=== PATIENT | female | born 1970 | race Caucasian/White ===

== ENCOUNTER 2017-03-06 15:07 | Emergency (ER) | payer BC ==
[2017-03-06] MEDS ORDERED: Ondansetron 4 MG/2 ML SDV IVPUSH ONE (15:18)
[2017-03-06] MEDS ORDERED: Sodium Chloride 0.9% 1,000 ML IV ONE (15:18)
[2017-03-06] MEDS ORDERED: Ketorolac 30 MG/ML SDV IVPUSH ONE (15:18)
[2017-03-06] MEDS ORDERED: Morphine 10 MG/ML Syringe IV ONE (15:18)
--- NOTE | 2017-03-06 15:42 | CR ---
EXAMINATION: Right wrist HISTORY: Trauma COMPARISON: 05/27/2009 TECHNIQUE: 3 views FINDINGS/IMPRESSION: There is a comminuted mildly displaced and angulated distal radius fracture chika ntified with intra-articular extension. There is an adjacent minimally displaced ulnar styloid fract ure. The remaining osseous structures and joint spaces appear preserved.
--- NOTE | 2017-03-06 15:43 | CR ---
EXAMINATION: Right elbow HISTORY: Trauma COMPARISON: None TECHNIQUE: 3 views FINDINGS/IMPRESSION: There is no acute osseous abnormality, dislocation, or fracture identified. Bon e mineralization and joint spaces appear normal. No soft tissue swelling or joint effusion.
--- NOTE | 2017-03-06 15:46 | EDM.PDOC ---
<Nolan Harper - Last Filed: 03/06/17 15:47> ED HPI Trauma - General Chief Complaint: Upper Extremity Injury/Pain Stated Complaint: UNK Time Seen by Provider: 03/06/17 15:15 Source: Reports: Patient History Limitations: Reports: No limitations - History of Present Illness INITIAL COMMENTS - FREE TEXT/NARRATIVE: History of present illness: [6-year-old female stepped backwards with a trip and fall landing on her right arm now presenting with subsequent pain and deformity in the right wrist and elbow region indicating she feels it is broken] Review of systems: As per history of present illness and below otherwise all systems reviewed and negative. Past medical history: As per history of present illness and as reviewed below otherwise noncontributory. Surgical history: As per history of present illness and as reviewed below otherwise noncontributory. Social history: No reported history of drug or alcohol abuse. Family history: As per history of present illness and as reviewed below otherwise noncontributory. Physical exam: HEENT: Atraumatic, normocephalic, pupils reactive, negative for conjunctival pallor or scleral icterus, mucous membranes moist, throat clear, neck supple, nontender, trachea midline. Lungs: Clear to auscultation, breath sounds equal bilaterally, chest nontender. Heart: S1S2, regular, negative for clicks, rubs, or JVD. Abdomen: Soft, nondistended, nontender. Negative for masses or hepatosplenomegaly. Negative for costovertebral tenderness. Pelvis: Stable nontender. Genitourinary: Deferred. Rectal: Deferred. Extremities: Right wrist and elbow with some swelling and deformity, good capillary refill with otherwise good CMST, negative for cords or calf pain. Neurovascular unremarkable. Neuro: Awake, alert, oriented. Cranial nerves II through XII unremarkable. Cerebellum unremarkable. Motor and sensory unremarkable throughout. Exam nonfocal. Diagnostics: [X-ray of right wrist and elbow] Therapeutics: [IV fluids, Toradol, morphine] Impression: [Fracture of right wrist and contusion of right elbow] Plan: [Followup with Dr. london scheduled for 0800 tomorrow] Definitive disposition and diagnosis as appropriate pending reevaluation and review of above. Allergies/ADRs: Allergies No Known Allergies Allergy (Verified 04/13/15 14:55) Home Medications: Ambulatory Orders DULoxetine [Cymbalta] 60 mg PO DAILY 04/13/15 [Confirmed 04/13/15] buPROPion [Wellbutrin XL] 300 mg PO DAILY 04/13/15 [Confirmed 03/06/17] Omeprazole Magnesium [Prilosec] 03/06/17 Past Medical History Other Respiratory History: hx pleurisy Social & Family History - Tobacco Use Smoking Status *Q: Never Smoker Second Hand Smoke Exposure: No - Caffeine Use Caffeine Use: Reports: Tea - Alcohol Use Days Per Week of Alcohol Use: 0 - Recreational Drug Use Recreational Drug Use: No Review of Systems - Review of Systems Review Of Systems: See Below (See history of present illness) Trauma Exam - Physical Exam Exam: See Below (See history of present illness) Course - Vital Signs Last Recorded V/S: Last Vital Signs Temp 36.8 C 03/06/17 15:15 Pulse 87 03/06/17 15:15 Resp 18 03/06/17 15:15 BP 114/57 L 03/06/17 15:15 Pulse Ox 97 03/06/17 15:15 - Orders/Labs/Meds Orders: Active Orders 24 hr Category Date Time Status DME for Discharge [COMM] Stat Oth 03/06/17 15:49 Ordered Meds: Medications Discontinued Medications Generic Name Dose Route Start Last Admin Trade Name Jeremyq PRN Reason Stop Dose Admin Sodium Chloride 1,000 mls @ 999 mls/hr 03/06/17 15:18 03/06/17 15:48 Normal Saline IV 03/06/17 16:18 999 mls/hr STAT ONE Administration Ketorolac Tromethamine 30 mg 03/06/17 15:18 03/06/17 15:43 Toradol IVPUSH 03/06/17 15:19 30 mg ONETIME ONE Administration Morphine Sulfate 2 mg 03/06/17 15:18 03/06/17 15:46 Morphine IV 03/06/17 15:19 2 mg ONETIME ONE Administration Ondansetron HCl 8 mg 03/06/17 15:18 03/06/17 15:44 Zofran IVPUSH 03/06/17 15:19 8 mg ONETIME ONE Administration Departure - Departure Time of Disposition: 15:47 Disposition: Home, Self-Care 01 Condition: good Clinical Impression: Fracture of radius and ulna Instructions: Wrist Fracture Treated With Immobilization, [id number] Referrals: PCP,None [Primary Care Provider] - Forms: ED Department Discharge Additional Instructions: The following information is given to patients seen in the emergency department who are being discharged to home. This information is to outline your options for follow-up care. We provide all patients seen in our emergency department with a follow-up referral. The need for follow-up, as well as the timing and circumstances, are variable depending upon the specifics of your emergency department visit. If you don't have a primary care physician on staff, we will provide you with a referral. We always advise you to contact your personal physician following an emergency department visit to inform them of the circumstance of the visit and for follow-up with them and/or the need for any referrals to a consulting specialist. The emergency department will also refer you to a specialist when appropriate. This referral assures that you have the opportunity for follow-up care with a specialist. All of these measure are taken in an effort to provide you with optimal care, which includes your follow-up. Under all circumstances we always encourage you to contact your private physician who remains a resource for coordinating your care. When calling for follow-up care, please make the office aware that this follow-up is from your recent emergency room visit. If for any reason you are refused follow-up, please contact the [facility] Emergency Department at and asked to speak to the emergency department charge nurse. You have a fracture of your wrist as discussed and we are placing an Orthocast per orthopedics request we have scheduled you an outpatient CT of the right wrist so that it will be completed for your visit at 0800 tomorrow morning. Please followup with that appointment. Return to ED as needed as discussed - My Orders Last 24 Hours: My Active Orders 03/06/17 15:49 DME for Discharge [COMM] Stat - Assessment/Plan Last 24 Hours: My Active Orders 03/06/17 15:49 DME for Discharge [COMM] Stat <Cierra Banks - Last Filed: 03/06/17 17:08> ED HPI Trauma - History of Present Illness INITIAL COMMENTS - FREE TEXT/NARRATIVE: Please note that orthopedics requested a CT scan of the wrist to be performed which we arranged to be done after discharge from the ER so they would have the results for her clinic appointment tomorrow. The patient was agreeable with doing this and it has been arranged. Short arm post mold was placed on the right wrist with a sling
[2017-03-06 19:24] VITALS: BP 110/57
== END 2017-03-06 17:00 | disposition home or self-care (01) ==
LOC: MW.ED 15:07
DX: S52.501A Unspecified fracture of the lower end of right radius, initial encounter for closed fracture (principal); S52.611A Displaced fracture of right ulna styloid process, initial encounter for closed fracture; Z79.899 Other long term (current) drug therapy; W01.0XXA Fall on same level from slipping, tripping and stumbling without subsequent striking against object, initial encounter; S62.101A Fracture of unspecified carpal bone, right wrist, initial encounter for closed fracture; S52.571A Other intraarticular fracture of lower end of right radius, initial encounter for closed fracture
CPT/HCPCS: 73080; 73110; 73200; 96374; 96375; 99283; A4566; J1885; J2270; J2405; J7040; 99284

== ENCOUNTER → 2017-03-06 | Outpatient (CLI) | payer BC ==
--- NOTE | 2017-03-07 09:53 | CT ---
EXAM DATE: 03/06/17 PATIENT'S AGE: 46 Patient: HYUN DUTTON Facility: [place], [place] Site . Site : 1970 Study: CT Extremity Right Wrist [id number]/19/2017 4:57:37 PM Ordering Physician: Karen Nina Final Report: HISTORY: Wrist fracture. Technique: CT right wrist without contrast. Comparison: None. Findings: Comminuted fracture of the distal radius involving the distal radial articular surface. Mild apex volar angulation and dorsal impaction with dorsal tilt of the radial articular surface. Radiocarpal alignment is maintained. There is comminution of the distal radial articular surface with up to 3 mm separation between fracture fragments at the articular surface. The dorsal fragments are mildly impacted. Less than 2 mm articular surface step-off between adjacent fragments at the distal radial articular surface. Mildly displaced comminuted ulnar styloid fracture. No other fracture. Scapholunate interval is upper limits of normal. No lunotriquetral interval is maintained. Remainder of the joint spaces are preserved. No lytic or blastic bone lesions. Wrist joint effusion. Soft tissue swelling. Impression : 1. Comminuted, mildly angulated and impacted intra-articular fracture of the distal radius. 2. Mildly displaced comminuted ulnar styloid fracture. Dictated by Charli Holland MD @ Mar 06 2017 5:16PM (Electronic Signature) Report Signed by Proxy and Original Signed Document filed in the Medical Record. [facility] MED[facility] CENTERFaviola
== END ==
LOC: MW.CT 16:11
PROVIDERS: ATTEND Orthopaedic Surgery
DX: S62.101A Fracture of unspecified carpal bone, right wrist, initial encounter for closed fracture (principal); S52.571A Other intraarticular fracture of lower end of right radius, initial encounter for closed fracture; S52.611A Displaced fracture of right ulna styloid process, initial encounter for closed fracture
CPT/HCPCS: 73200-26-RT; 73200-RT

== ENCOUNTER → 2017-03-07 | Outpatient (CLI) | payer BC ==
--- NOTE | 2017-03-07 12:22 | CR ---
EXAMINATION: Right wrist HISTORY: Fracture COMPARISON: 12/06/2016 TECHNIQUE: 3 views FINDINGS/IMPRESSION: There is grossly stable comminuted distal radius fracture identified. There is adjacent mildly displaced ulnar styloid fracture noted. Overall position and alignment appear grossl y unchanged.
== END ==
LOC: MW.CHORTHO 08:57
PROVIDERS: ATTEND Orthopaedic Surgery
DX: S62.101A Fracture of unspecified carpal bone, right wrist, initial encounter for closed fracture (principal); S52.501A Unspecified fracture of the lower end of right radius, initial encounter for closed fracture; S52.611A Displaced fracture of right ulna styloid process, initial encounter for closed fracture
CPT/HCPCS: 73110-26-RT; 73110-RT

== ENCOUNTER 2017-03-08 04:57 | Emergency (ER) | payer BC ==
[2017-03-08] MEDS ORDERED: HYDROmorphone 1 MG/ML Syringe IM ONE (05:30)
--- NOTE | 2017-03-08 05:34 | EDM.PDOC ---
ED HPI Trauma - General Chief Complaint: Upper Extremity Injury/Pain Stated Complaint: RIGHT ARM PAIN Time Seen by Provider: 03/08/17 05:30 Source: Reports: Patient - History of Present Illness INITIAL COMMENTS - FREE TEXT/NARRATIVE: Chief complaint pain Patient presents with history of a distal radial fracture as well as ulnar styloid fracture, she is seeing Maria Isabel Bailon hand or wrist has been reduced x- rays on file Patient has been taking OxyContin unknown milligram dose 2 tabs every 4 hours without relief, she presents tearful No fever nausea vomiting chills sweats no chest pain shortness breath headache dizziness or palpitation HEENT NCAT PERRLA EOMI nares patent oropharynx clear neck supple no meningeal sign Chest clear throughout CV regular rate and rhythm Abdomen benign Extremities four-inch motion strength 5 out of 5 no edema Left upper extremity splint noted capillary refill within normal limits less than 5 seconds 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 Bailon scheduled sooner as needed Allergies/ADRs: Allergies No Known Allergies Allergy (Verified 03/08/17 05:11) Home Medications: Ambulatory Orders DULoxetine [Cymbalta] 60 mg PO DAILY 04/13/15 [Confirmed 04/13/15] buPROPion [Wellbutrin XL] 300 mg PO DAILY 04/13/15 [Confirmed 03/08/17] Omeprazole Magnesium [Prilosec] 03/06/17 Hydrocodone/Acetaminophen [Hydrocodon-Acetaminophen 5-325] 03/08/17 Past Medical History Other Respiratory History: hx pleurisy Gastrointestinal History: Reports: GERD Endocrine/Metabolic History: Reports: None - Infectious Disease History Infectious Disease History: Reports: Chicken pox Social & Family History - Family History Family Medical History: Noncontributory - Tobacco Use Smoking Status *Q: Never Smoker Second Hand Smoke Exposure: No - Caffeine Use Caffeine Use: Reports: Tea - Alcohol Use Days Per Week of Alcohol Use: 0 - Recreational Drug Use Recreational Drug Use: No Review of Systems - Review of Systems Review Of Systems: ROS reveals no pertinent complaints other than HPI. Trauma Exam - Physical Exam Exam: See Below Course - Vital Signs Last Recorded V/S: Last Vital Signs Temp 36.7 C 03/08/17 05:13 Pulse 83 03/08/17 05:13 Resp 18 03/08/17 05:13 BP 137/66 03/08/17 05:13 Pulse Ox 97 03/08/17 05:13 - Orders/Labs/Meds Orders: Active Orders 24 hr Category Date Time Status HYDROmorphone [Dilaudid] Med 03/08/17 05:30 Once 0.5 mg IM ONETIME ONE Medication Orders Hydromorphone HCl (Dilaudid) 0.5 mg IM ONETIME ONE Stop: 03/08/17 05:31 Meds: Medications Generic Name Dose Route Start Last Admin Trade Name Freq PRN Reason Stop Dose Admin Hydromorphone HCl 0.5 mg 03/08/17 05:30 Dilaudid IM 03/08/17 05:31 ONETIME ONE Departure - Departure Time of Disposition: 05:33 Disposition: Home, Self-Care 01 Condition: good Clinical Impression: Distal radial fracture Forms: ED Department Discharge Additional Instructions: Continue Medication as prescribed Return if symptoms persist or worsen Followup with Dr. Jones or primary care as needed - My Orders Last 24 Hours: My Active Orders 03/08/17 05:30 HYDROmorphone [Dilaudid] 0.5 mg IM ONETIME ONE - Assessment/Plan Last 24 Hours: My Active Orders 03/08/17 05:30 HYDROmorphone [Dilaudid] 0.5 mg IM ONETIME ONE
[2017-03-08 06:57] VITALS: BP 125/67
== END 2017-03-08 06:15 | disposition home or self-care (01) ==
LOC: MW.ED 04:57
DX: S52.501D Unspecified fracture of the lower end of right radius, subsequent encounter for closed fracture with routine healing (principal); S52.611D Displaced fracture of right ulna styloid process, subsequent encounter for closed fracture with routine healing; K21.9 Gastro-esophageal reflux disease without esophagitis
CPT/HCPCS: 96372; 99283; J1170

== ENCOUNTER → 2017-03-14 | Outpatient (CLI) | payer BC ==
--- NOTE | 2017-03-14 16:01 | CR ---
EXAM DATE: 03/14/17 PATIENT'S AGE: 46 Patient: HYUN DUTTON Facility: [place], [place] Site . Site : 1970 Study: XRay Extremity Right [id number]/27/2017 8:56:32 AM Ordering Physician: Jayden Astudillo Final Report: Indication: Follow up fracture. Technique: AP and lateral views of the right wrist. Comparison: 03/07/2017. Findings: Plaster cast in place. Comminuted distal radial metaphysis fracture fragments unchanged and near anatomic in alignment. Widened scapholunate articulation due to scaphoid lunate ligament disruption. Impression: 1. Comminuted distal radial metaphysis fracture without change in alignment. 2. Scapholunate ligament disruption. Dictated by Pierre Ramirez MD @ Mar 14 2017 3:23PM (Electronic Signature) Report Signed by Proxy. BRIGHT
== END ==
LOC: MW.CHORTHO 07:40
PROVIDERS: ATTEND Physician Assistant
DX: S62.101A Fracture of unspecified carpal bone, right wrist, initial encounter for closed fracture (principal); S52.501A Unspecified fracture of the lower end of right radius, initial encounter for closed fracture; S63.591A Other specified sprain of right wrist, initial encounter
CPT/HCPCS: 73100-26-RT; 73100-RT

== ENCOUNTER → 2017-03-20 | Outpatient (CLI) | payer BC ==
--- NOTE | 2017-03-20 12:31 | CR ---
EXAMINATION: Right wrist HISTORY: Fracture COMPARISON: 03/14/2017 TECHNIQUE: 2 views FINDINGS/IMPRESSION: There is a comminuted intra-articular distal radius fracture identified, unchan ged in position and alignment. There is an adjacent mildly displaced ulnar styloid fracture. The rem aining osseous structures appear intact.
== END ==
LOC: MW.CHORTHO 07:46
PROVIDERS: ATTEND Physician Assistant
DX: S62.101A Fracture of unspecified carpal bone, right wrist, initial encounter for closed fracture (principal); S52.571A Other intraarticular fracture of lower end of right radius, initial encounter for closed fracture; S52.611A Displaced fracture of right ulna styloid process, initial encounter for closed fracture
CPT/HCPCS: 73100-26-RT; 73100-RT

== ENCOUNTER 2020-12-01 08:40 | Day surgery (SDC) | payer BC ==
[~2020-12-01 08:40] MED LIST: Lactated Ringers 1,000 ML IV SCH; Lidocaine 2% 5 ML SDV ONE; Propofol 200 MG/20 ML SDV ONE; fentaNYL 100 MCG/2 ML SDV ONE
--- NOTE | 2020-12-01 09:16 | PCM.PREANE ---
Preanesthetic Assessment - Anesthesia/Transfusion/Family Hx Anesthesia History: Prior Anesthesia Without Reaction Family History of Anesthesia Reaction: No Transfusion History: No Prior Transfusion(s) Intubation History: Unknown - Review of Systems General: No Symptoms Pulmonary: No Symptoms Cardiovascular: No Symptoms Gastrointestinal: Abdominal Pain, Other (significant acid reflux) Neurological: No Symptoms Other: Reports: None - Physical Assessment Height: 5 ft 9 in Weight: 119.295 kg ASA Class: 2 Mental Status: Alert & Oriented x3 Airway Class: Mallampati = 2 Dentition: Reports: Normal Dentition Thyro-Mental Finger Breadths: 3 Mouth Opening Finger Breadths: 3 ROM/Head Extension: Full Lungs: Clear to Auscultation, Normal Respiratory Effort Cardiovascular: Regular Rate, Regular Rhythm - Allergies Allergies/Adverse Reactions: Allergies Allergy/AdvReac Type Severity Reaction Status Date / Time No Known Allergies Allergy Verified 11/25/20 07:56 - Blood Blood Available: No - Anesthesia Plan Pre-Op Medication Ordered: None - Acknowledgements Anesthesia Type Planned: MAC Pt an Appropriate Candidate for the Planned Anesthesia: Yes Alternatives and Risks of Anesthesia Discussed w Pt/Guardian: Yes Pt/Guardian Understands and Agrees with Anesthesia Plan: Yes PreAnesthesia Questionnaire HEENT History: Reports: Other (See Below) Other HEENT History: wears glasses Cardiovascular History: Reports: Other (See Below) (lymphedema bilat. 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: Musculoskeletal History: Reports: Fracture, Fibromyalgia Neurological History: Reports: Other (See Below) Other Neuro History: hx head injury Psychiatric History: Reports: ADHD, Anxiety, Depression Endocrine/Metabolic History: Reports: None, Obesity/BMI 30+ (BMI 38.8) Hematologic History: Reports: None Immunologic History: Reports: None Oncologic (Cancer) History: Reports: None Dermatologic History: Reports: None - Infectious Disease History Infectious Disease History: Reports: Chicken Pox - Past Surgical History Head Surgeries/Procedures: Reports: None HEENT Surgical History: Reports: None Cardiovascular Surgical History: Reports: None Respiratory Surgical History: Reports: None GI Surgical History: Reports: Cholecystectomy Female Surgical History: Reports: Hysterectomy Endocrine Surgical History: Reports: None Neurological Surgical History: Reports: None Musculoskeletal Surgical History: Reports: ORIF Other Musculoskeletal Surgeries/Procedures:: ORIF fx right wrist Oncologic Surgical History: Reports: None Dermatological Surgical History: Reports: None - SUBSTANCE USE Tobacco Use Status *Q: Never Tobacco User - HOME MEDS Home Medications: Home Meds Methylphenidate HCl 10 mg PO ASDIRECTED 11/25/20 [History] Omeprazole 20 mg PO DAILY 11/25/20 [History] Pantoprazole Sodium [Protonix] 40 mg PO BEDTIME 11/25/20 [History] Vortioxetine Hydrobromide [Trintellix] 20 mg PO DAILY 11/25/20 [History] - CURRENT (IN HOUSE) MEDS Current Meds: Current Medications Lactated Ringer's (Ringers, Lactated) 1,000 mls @ 125 mls/hr IV ASDIRECTED VALENTIN Discontinued Medications Fentanyl (Sublimaze) Confirm Administered Dose 100 mcg .ROUTE .STK-MED ONE Stop: 12/01/20 07:11 Lidocaine (Xylocaine-Mpf 2%) Confirm Administered Dose 5 ml .ROUTE .STK-MED ONE Stop: 12/01/20 07:11 Propofol (Diprivan 20 Ml) Confirm Administered Dose 400 mg .ROUTE .STK-MED ONE Stop: 12/01/20 07:11
[2020-12-01] MEDS ORDERED: Midazolam 1 MG/ML 2 ML SDV ONE (10:04)
[2020-12-01] MEDS ORDERED: Glycopyrrolate 0.2 MG/ML SDV ONE (10:05)
--- NOTE | 2020-12-01 10:31 | PCM.OPNOTE ---
- General Post-Op/Procedure Note Date of Surgery/Procedure: 12/01/20 Operative Procedure(s): EGD with biopsies Findings: Normal EGD dictation [id number] Pre Op Diagnosis: GERD, Esophageal spasms. Post-Op Diagnosis: GERD, Esophageal spasms. Primary Surgeon: Ranjan Ayala Pathology: EGD biopsies Complications: None Condition: Good
[2020-12-01 10:43] VITALS: PULSE 85
--- NOTE | 2020-12-01 10:47 | PCM.POSTAN ---
POST ANESTHESIA ASSESSMENT - MENTAL STATUS Mental Status: Alert, Oriented - VITAL SIGNS Vital Signs: Last Vital Signs Temp 36.0 C L 12/01/20 09:00 Pulse 85 12/01/20 10:41 Resp 19 12/01/20 10:41 BP 129/61 12/01/20 10:41 Pulse Ox 96 12/01/20 10:41 - RESPIRATORY Respiratory Status: Respiratory Rate WNL, Airway Patent, O2 Saturation Stable - CARDIOVASCULAR CV Status: Pulse Rate WNL, Blood Pressure Stable - GASTROINTESTINAL GI Status: No Symptoms - PAIN Pain Score: 0 - POST OP HYDRATION Hydration Status: Adequate & Stable - OBSERVATIONS Free Text/Narrative:: No anesthesia problems
--- NOTE | 2020-12-01 11:13 | PCM48HPAN ---
Post Anesthesia Note - EVALUATION WITHIN 48HRS OF ANESTHETIC Vital Signs in Normal Range: Yes Patient Participated in Evaluation: Yes Respiratory Function Stable: Yes Airway Patent: Yes Cardiovascular Function Stable: Yes Hydration Status Stable: Yes Pain Control Satisfactory: Yes Nausea and Vomiting Control Satisfactory: Yes Mental Status Recovered: Yes Vital Signs: Last Vital Signs Temp 36.0 C L 12/01/20 09:00 Pulse 85 12/01/20 10:41 Resp 19 12/01/20 10:41 BP 129/61 12/01/20 10:41 Pulse Ox 96 12/01/20 10:41 - COMMENTS/OBSERVATIONS Free Text/Narrative:: No anesthesia problems
[2020-12-01 11:39] VITALS: BP 118/66
--- NOTE | 2020-12-01 15:21 | OR ---
SURGEON: KARINE MATHEW MD DATE OF PROCEDURE: 12/01/2020 PREOPERATIVE DIAGNOSES: 1. Gastroesophageal reflux disease. 2. Esophageal spasm. POSTOPERATIVE DIAGNOSES: 1. Gastroesophageal reflux disease. 2. Esophageal spasm. PROCEDURE PERFORMED: Esophagogastroduodenoscopy with biopsy. PRIMARY SURGEON: Karine Mathew MD ANESTHESIA: With the anesthesiologist. EXTENT OF EGD: To at least second part of duodenum. FINDINGS: Normal-appearing EGD. LIMITATIONS: None. REASON FOR EGD: The patient is a pleasant 50-year-old female who says for the last several months she has had a cough and sore throat along with bronchitis and pneumonia. She is coughing all the time. She feels she has a lot of postnasal drip. She often loses her voice. She feels the reflux has become worse and feels like she gets mucus on the back of her throat. She has had an issue with GERD for the last 4-5 years. Does have family history of esophageal cancer and esophageal rupture. She did have an upper swallow to go over with this patient in the preop area and showed a small sliding hernia and esophageal dysmotility with possible distal spasm and some minimal reflux. I did go over with the patient that if she is having spasming and dysmotility, she will probably need a manometry and see a GI doctor. She is on a PPI. She might want to try peppermint oil to help with spasming. All the patient's questions were answered. PROCEDURE IN DETAIL: Physical exam was performed by me. Risks, benefits, and associated procedure were explained to the patient in detail. Patient verbalized understanding of the same. Patient was next connected to appropriate monitoring devices and IV was started. EKG, pulse, pulse oximetry, blood pressure, and capnography were monitored throughout the procedure. Continuous oxygen and sedation were provided by the anesthesiologist. Bite block was placed and sedation was begun. After adequate sedation was achieved, upper endoscope was advanced under visualization without any difficulty in the upper GI tract and the mucosa of the esophagus, GE junction, stomach, pylorus, and 1st and 2nd part of duodenum were evaluated. Duodenum appeared normal. Scope was brought back into the stomach. Both retro and antegrade views of the stomach were done. This also appeared normal mucosa. I did do a biopsy of the pylorus to check for H pylori. The scope was brought to the GE junction. GE junction was approximately 36 cm from the incisors with a good squamocolumnar junction. The scope was brought to the stomach. Stomach was deflated. Scope was brought to the esophagus. Esophagus also appeared normal. The scope was completely removed. The procedure was terminated. ENDOSCOPIC DIAGNOSIS: Normal esophagogastroduodenoscopy. RECOMMENDATIONS: Patient to follow up in clinic to go over the pathology. She may need a referral to GI for a manometry and a possible further workup of her esophageal dysmotility and esophageal spasming. SHWETHA / KARINA /[id number]
== END 2020-12-01 11:10 | disposition home or self-care (01) ==
LOC: MW.SDS 08:40
PROVIDERS: ATTEND Surgery
DX: K21.9 Gastro-esophageal reflux disease without esophagitis (principal); K22.4 Dyskinesia of esophagus; E66.9 Obesity, unspecified; G47.30 Sleep apnea, unspecified; Z80.0 Family history of malignant neoplasm of digestive organs; Z79.899 Other long term (current) drug therapy; Z98.890 Other specified postprocedural states; Z68.38 Body mass index [BMI] 38.0-38.9, adult
CPT/HCPCS: 43239; J2001; J2250; J2704; J3010; J3490; J7120; 00731; 88305; 88312

== ENCOUNTER 2021-06-29 07:14 | Emergency (ER) | payer BC ==
[2021-06-29] MEDS ORDERED: Sodium Chloride 0.9% 2.5 ML Syringe FLUSH PRN (07:30)
[2021-06-29] MEDS ORDERED: Ondansetron 4 MG/2 ML SDV IVPUSH ONE (07:30)
[2021-06-29] MEDS ORDERED: Sodium Chloride 0.9% 10 ML Syringe FLUSH PRN (07:30)
[2021-06-29] MEDS ORDERED: Acetaminophen 500 MG Tab PO ONE (07:30)
[2021-06-29] MEDS ORDERED: Ketorolac 30 MG/ML SDV IVPUSH ONE (07:30)
[2021-06-29] MEDS ORDERED: Sodium Chloride 0.9% 1,000 ML IV ONE ×2 (07:30→10:40)
[2021-06-29] MEDS ORDERED: Azithromycin 250 MG Tab PO ONE (07:32)
[2021-06-29 08:18] LABS: CARBON DIOXIDE,CO2 25.1 mmol/L (21.0-32.0); POTASSIUM,K 3.4 mmol/L (3.5-5.1)
[2021-06-29] MEDS ORDERED: cefTRIAXone 1 GM in Premix Bag 1 BAG IV ONE (09:17)
--- NOTE | 2021-06-29 09:46 | EDM.PDOC ---
ED HPI GENERAL MEDICAL PROBLEM - General Chief Complaint: General Stated Complaint: COVID LIKE SYMPTOMS, VOMITING, TIGHT CHEST Time Seen by Provider: 06/29/21 08:09 - History of Present Illness INITIAL COMMENTS - FREE TEXT/NARRATIVE: HISTORY AND PHYSICAL: History of present illness: This is a 50-year-old female with a history significant for a hysterectomy, cholecystectomy, negative for hypertension diabetes lung and kidney problems, history of liver problems secondary to mononucleosis several years ago, who presents ER today secondary to generalized malaise, tactile fevers, yellow/green productive cough, rhinorrhea, sore throat, ear pain, diffuse myalgias, joint pains, muscle pains for several days. Patient reports that she saw her primary care physician and was given a full course of steroids secondary to concerns regarding fluid behind her ear. Patient reports that she did not improve at all with the steroids and saw her doctor yesterday. She reports that her doctor started her on doxycycline and she is taking 2 doses of doxycycline with a last dose at approximately 5 AM. Patient reports that she had a Covid and flu test yesterday that was negative. Patient reports episode of vomiting at approximately 6 AM today that woke her up but that was after the doxycycline dose. Patient denies any other nausea or vomiting. Patient does have loose stools. Patient denies any abdominal pain or chest pain. Patient denies any shortness of breath. Patient denies any dysuria, frequency, urgency. Patient has any melena or bright red blood per rectum. Patient has any weakness to her upper or lower extremities. Patient denies any neck pain or headache. Review of systems: As per history of present illness and below otherwise all systems reviewed and negative. Past medical history: As per history of present illness and as reviewed below otherwise noncontributory. Surgical history: As per history of present illness and as reviewed below otherwise noncontributory. Social history: No reported history of drug abuse. Family history: As per history of present illness and as reviewed below otherwise noncontributory. Physical exam: This patient was seen and evaluated during the 2019 SARS-CoV-2 novel coronavirus pandemic period. Community viral transmission is ongoing at time of this encounter and the emergency department is operating under pandemic response procedures. Constitutional: Patient is oriented to person, place, and time. Appears well- developed and well-nourished. No distress. HEENT: Moist mucous membranes. Neck supple, no nuchal rigidity, no photophobia, no Kernig's sign or Brudzinski sign, patient does not present with signs or symptoms of be consistent with meningitis. Tympanic membrane's pearly jacques without fluid or evidence of infection. Oropharynx clear without any erythema. No lymphadenopathy identified. Head: Normocephalic and atraumatic Eyes: Right eye exhibits no discharge. Left eye exhibits no discharge. No scleral icterus Neck: Normal range of motion. No tracheal deviation present. Cardiovascular: Normal rate and regular rhythm. Pulmonary: Effort normal, no respiratory distress. Abdominal: No distention Musculoskeletal: Normal range of motion. No joint effusion or tenderness or erythema. Neuro: A&Ox3. Cranial nerves II-XII grossly intact, 5/5 strength to bilateral upper and lower extremities, sensation intact to bilateral upper and lower extremities, no nystagmus, PERRLA, EOMI, normal speech, proprioception intact to bilateral lower extremities, normal finger to nose test, gait normal Skin: Dewy Rose, warm and dry. Psychiatric: Normal mood and affect. Behavior is normal. Judgment and thought content normal. Nursing note and vital signs have been reviewed Diagnostics: CBC/CMP within normal limits Therapeutics: NSS x1 L, Zithromax 500 mg p.o. given secondary to concerned that doxycycline is causing her to have emesis. Zofran 4 mg IV Assessment and plan: 50-year-old who presents to the ER today secondary to URI symptoms. Patient's chest x-ray reveals a likely right middle lobe infiltrate versus a fat pad. Patient was given an additional dose of Rocephin 1 g IV. Patient has been given 1 L of NSS reports that she feels significant improved after the fluids. Patient is also given Toradol for her muscle aches. At this time, patient symptoms appear to be most consistent with an infectious process with likely pneumonia on the x-ray. It does not appear to be consistent with pulmonary embolism secondary to patient's presenting symptoms and patient has no significant risk factors for PE. Patient be discharged home with prescription for Zithromax. 4:56 PM: Chest x-ray was read by radiology as concerning for a nodule in the left upper lobe and recommended a CT scan with IV contrast. CT scan with IV contrast was obtained which revealed no evidence of PE, no evidence of lobar pneumonia but with increased interstitial markings throughout consistent with viral pneumonia to consider Covid (patient had negative influenza and negative Covid test done at her doctor's office yesterday), a 4 cm nodule was noted in the left upper lobe. A copy of the CT scan report and recommendations per radiology were given to the patient and her instructed to give to her PCP for continued outpatient follow-up but this time with a 4 cm nodule that is calcified it is less likely to be malignant given the size and that there was a nodule identified on a prior x-ray several years ago. Patient feels much improved after the IV fluids and Toradol and Zofran. Patient will be discharged home with a prescription for Zithromax and instructed to continue her doxycycline. Patient be given a prescription for Zofran for nausea and ibuprofen. Reassessment at the time of disposition demonstrates that the patient is in no acute distress. The patient has remained stable throughout the entire ED visit and is without objective evidence for acute process requiring urgent intervention or hospitalization. The patient is stable for discharge, counseling is provided as documented above, discussed symptomatic treatment and specific conditions for return. I have spoken with the patient/caregiver and discussed todays findings, in addition to providing specific details for the plan of care. Questions are answered and there is agreement with the plan. Definitive disposition and diagnosis as appropriate pending reevaluation and review of above. - Related Data Allergies Allergy/AdvReac Type Severity Reaction Status Date / Time No Known Allergies Allergy Verified 12/01/20 10:05 Home Meds: Home Meds Methylphenidate HCl 10 mg PO ASDIRECTED 11/25/20 [History] Omeprazole 20 mg PO DAILY 11/25/20 [History] Pantoprazole Sodium [Protonix] 40 mg PO BEDTIME 11/25/20 [History] Vortioxetine Hydrobromide [Trintellix] 20 mg PO DAILY 11/25/20 [History] Ibuprofen 600 mg PO Q6HR PRN #30 tablet 06/29/21 [Rx] Ondansetron [Zofran ODT] 4 mg PO Q6H PRN #12 tab.dis 06/29/21 [Rx] Past Medical History HEENT History: Reports: Other (See Below) Other HEENT History: wears glasses Cardiovascular History: Reports: None Respiratory History: Reports: Sleep Apnea Other Respiratory History: uses CPAP, states had bronchitis and pneumonia in early Oct 2020 Gastrointestinal History: Reports: GERD Genitourinary History: Reports: None 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: Musculoskeletal History: Reports: Fracture, Fibromyalgia Neurological History: Reports: Other (See Below) Other Neuro History: hx head injury Psychiatric History: Reports: ADHD, Anxiety, Depression Endocrine/Metabolic History: Reports: None, Obesity/BMI 30+ Hematologic History: Reports: None Immunologic History: Reports: None Oncologic (Cancer) History: Reports: None Dermatologic History: Reports: None - Infectious Disease History Infectious Disease History: Reports: Chicken Pox - Past Surgical History Head Surgeries/Procedures: Reports: None HEENT Surgical History: Reports: None Cardiovascular Surgical History: Reports: None Respiratory Surgical History: Reports: None GI Surgical History: Reports: Cholecystectomy Female Surgical History: Reports: Hysterectomy Endocrine Surgical History: Reports: None Neurological Surgical History: Reports: None Musculoskeletal Surgical History: Reports: ORIF Other Musculoskeletal Surgeries/Procedures:: ORIF fx right wrist Oncologic Surgical History: Reports: None Dermatological Surgical History: Reports: None Social & Family History - Family History Family Medical History: No Pertinent Family History - Caffeine Use Caffeine Use: Reports: None - Recreational Drug Use Recreational Drug Use: No ED ROS GENERAL - Review of Systems Review Of Systems: See Below ED EXAM, GENERAL - Physical Exam Exam: See Below #1 Interpretation EKG Interpretation Comments: EKG date June 29, 2021 at 7:55 AM. EKG: As interpreted by ER physician: Esteban: Nonspecific ST-T wave abnormalities Normal axis No evidence of ST elevation KS Normal sinus rhythm heart rate of 84 Course - Vital Signs Last Recorded V/S: Last Vital Signs Temp 97.8 F 06/29/21 07:37 Pulse 76 06/29/21 12:36 Resp 18 06/29/21 12:36 BP 114/51 L 06/29/21 12:36 Pulse Ox 93 L 06/29/21 12:36 - Orders/Labs/Meds Orders: Active Orders 24 hr Category Date Time Status EKG Documentation Completion [RC] AM Care 06/29/21 07:30 Active Sodium Chloride 0.9% [Saline Flush] Med 06/29/21 07:30 Active 10 ml FLUSH ASDIRECTED PRN Sodium Chloride 0.9% [Saline Flush] Med 06/29/21 07:30 Active 2.5 ml FLUSH ASDIRECTED PRN Saline Lock Insert [OM.PC] Stat Oth 06/29/21 07:31 Ordered Medication Orders Sodium Chloride (Sodium Chloride 0.9% 10 Ml Syringe) 10 ml FLUSH ASDIRECTED PRN PRN Reason: Keep Vein Open Last Admin: 06/29/21 08:00 Dose: 10 ml Documented by: NOHEMY Sodium Chloride (Sodium Chloride 0.9% 2.5 Ml Syringe) 2.5 ml FLUSH ASDIRECTED PRN PRN Reason: Keep Vein Open Last Admin: 06/29/21 08:00 Dose: 2.5 ml Documented by: NOHEMY Labs: Laboratory Tests 06/29/21 06/29/21 Range/Units 07:43 07:43 WBC 3.51 L (4.0-11.0) K/uL RBC 5.38 (4.30-5.90) M/uL Hgb 14.9 (12.0-16.0) g/dL Hct 43.7 (36.0-46.0) % MCV 81.2 (80.0-98.0) fL MCH 27.7 (27.0-32.0) pg MCHC 34.1 (31.0-37.0) g/dL RDW Std Deviation 42.2 (28.0-62.0) fl RDW Coeff of Pooja 14 (11.0-15.0) % Plt Count 90 L (150-400) K/uL MPV 11.30 (7.40-12.00) fL Neut % (Auto) 67.2 (48.0-80.0) % Lymph % (Auto) 26.8 (16.0-40.0) % [place] % (Auto) 6.0 (0.0-15.0) % Eos % (Auto) 0.0 (0.0-7.0) % Baso % (Auto) 0.0 (0.0-1.5) % Neut # (Auto) 2.4 (1.4-5.7) K/uL Lymph # (Auto) 0.9 (0.6-2.4) K/uL [place] # (Auto) 0.2 (0.0-0.8) K/uL Eos # (Auto) 0.0 (0.0-0.7) K/uL Baso # (Auto) 0.0 (0.0-0.1) K/uL Nucleated RBC % 0.0 /100WBC Nucleated RBCs # 0 K/uL Sodium 138 (136-145) mmol/L Potassium 3.4 L (3.5-5.1) mmol/L Chloride 101 (98-107) mmol/L Carbon Dioxide 25.1 (21.0-32.0) mmol/L BUN 15 (7.0-18.0) mg/dL Creatinine 1.3 H (0.6-1.0) mg/dL Est Cr Clr Drug Dosing 54.11 mL/min Estimated GFR (MDRD) 43.4 ml/min Glucose 98 (74-106) mg/dL Calcium 8.4 L (8.5-10.1) mg/dL Total Bilirubin 0.3 (0.2-1.0) mg/dL AST 29 (15-37) IU/L ALT 29 (14-63) IU/L Alkaline Phosphatase 83 (46-116) U/L Total Protein 7.2 (6.4-8.2) g/dL Albumin 3.5 (3.4-5.0) g/dL Globulin 3.7 (2.6-4.0) g/dL Albumin/Globulin Ratio 0.9 (0.9-1.6) Meds: Medications Generic Name Dose Route Start Last Admin Trade Name Freq PRN Reason Stop Dose Admin Sodium Chloride 10 ml 06/29/21 07:30 06/29/21 08:00 Sodium Chloride 0.9% 10 Ml Syringe FLUSH 10 ml ASDIRECTED PRN Administration Keep Vein Open Sodium Chloride 2.5 ml 06/29/21 07:30 06/29/21 08:00 Sodium Chloride 0.9% 2.5 Ml Syringe FLUSH 2.5 ml ASDIRECTED PRN Administration Keep Vein Open Discontinued Medications Generic Name Dose Route Start Last Admin Trade Name Freq PRN Reason Stop Dose Admin Acetaminophen 500 mg 06/29/21 07:30 06/29/21 08:03 Acetaminophen 500 Mg Tab PO 06/29/21 07:31 500 mg ONETIME ONE Administration Azithromycin 500 mg 06/29/21 07:32 06/29/21 08:01 Azithromycin 250 Mg Tab PO 06/29/21 07:33 500 mg Q24H ONE Administration Sodium Chloride 1,000 mls @ 999 mls/hr 06/29/21 07:30 06/29/21 07:59 Normal Saline IV 06/29/21 08:30 999 mls/hr .Bolus ONE Administration Ceftriaxone Sodium/Dextrose 1 50 mls @ 100 mls/hr 06/29/21 09:17 06/29/21 09:24 gm/ Premix IV 06/29/21 09:46 100 mls/hr ONETIME ONE Administration Sodium Chloride 1,000 mls @ 999 mls/hr 06/29/21 10:40 06/29/21 11:01 Normal Saline IV 06/29/21 11:40 999 mls/hr .Bolus ONE Administration Iopamidol 75 ml 06/29/21 11:16 06/29/21 11:16 Iopamidol 755 Mg/Ml 500 Ml Multipack Bottle IVPUSH 06/29/21 11:17 75 ml ONETIME STA Administration Ketorolac Tromethamine 30 mg 06/29/21 07:30 06/29/21 08:01 Ketorolac 30 Mg/Ml Sdv IVPUSH 06/29/21 07:31 30 mg ONETIME ONE Administration Ondansetron HCl 4 mg 06/29/21 07:30 06/29/21 08:02 Ondansetron 4 Mg/2 Ml Sdv IVPUSH 06/29/21 07:31 4 mg ONETIME ONE Administration Departure - Departure Time of Disposition: 12:58 Disposition: Home, Self-Care 01 Condition: Good Clinical Impression: Viral respiratory infection, Pulmonary nodule - Discharge Information Instructions: Pulmonary Nodule, Viral Illness, Adult Referrals: Shelbi Zapata ANATOMY TEACHER [Primary Care Provider] - Forms: ED Department Discharge Additional Instructions: Your seen and evaluated in the ER today secondary to signs and symptoms concerning for possible pneumonia. Your x-ray reveals that you might have a viral infection in your lungs. You were started on doxycycline and I will add Zithromax to your antibiotic regimen. A prescription will be sent to your pharmacy. We will also write a prescription for ibuprofen to help with your muscle aches as well as Zofran help you with your nausea. Please make an appointment see your doctor in 48 hours if no improvement is seen. Please return to the ER if he develop any new or concerning symptoms such as fevers or increased shortness of breath. The following information is given to patients seen in the emergency department who are being discharged to home. This information is to outline your options for follow-up care. We provide all patients seen in our emergency department with a follow-up referral. The need for follow-up, as well as the timing and circumstances, are variable depending upon the specifics of your emergency department visit. If you don't have a primary care physician on staff, we will provide you with a referral. We always advise you to contact your personal physician following an emergency department visit to inform them of the circumstance of the visit and for follow-up with them and/or the need for any referrals to a consulting spec ialist. The emergency department will also refer you to a specialist when appropriate. This referral assures that you have the opportunity for follow-up care with a specialist. All of these measure are taken in an effort to provide you with optimal care, which includes your follow-up. Under all circumstances we always encourage you to contact your private physician who remains a resource for coordinating your care. When calling for follow-up care, please make the office aware that this follow-up is from your recent emergency room visit. If for any reason you are refused follow-up, please contact the [facility] Emergency Department at and asked to speak to the emergency department charge nurse. [facility] [address] [place] [address] [address] Sepsis Event Note (ED) - Focused Exam Vital Signs: Vital Signs Temp Pulse Resp BP Pulse Ox 06/29/21 12:36 76 18 114/51 L 93 L 06/29/21 11:13 75 19 125/67 96 06/29/21 10:36 79 19 114/64 97 06/29/21 10:06 76 18 123/63 95 06/29/21 09:10 78 18 138/62 92 L 06/29/21 09:09 80 18 128/68 95 06/29/21 07:37 97.8 F 86 19 135/59 L 97 06/29/21 07:25 97.1 F 85 19 128/63 95 - My Orders Last 24 Hours: My Active Orders 06/29/21 07:30 EKG Documentation Completion [RC] AM Sodium Chloride 0.9% [Saline Flush] 10 ml FLUSH ASDIRECTED PRN Sodium Chloride 0.9% [Saline Flush] 2.5 ml FLUSH ASDIRECTED PRN 06/29/21 07:31 Saline Lock Insert [OM.PC] Stat - Assessment/Plan Last 24 Hours: My Active Orders 06/29/21 07:30 EKG Documentation Completion [RC] AM Sodium Chloride 0.9% [Saline Flush] 10 ml FLUSH ASDIRECTED PRN Sodium Chloride 0.9% [Saline Flush] 2.5 ml FLUSH ASDIRECTED PRN 06/29/21 07:31 Saline Lock Insert [OM.PC] Stat
--- NOTE | 2021-06-29 10:39 | CR ---
INDICATION: Cough. TECHNIQUE: Chest 2 views COMPARISON: Prior report available from a chest x-ray dated February 04, 2015. FINDINGS: Cardiovascular and mediastinum: Heart size and vasculature are normal in caliber and appearance. Lungs and pleural spaces: Ill-defined 2 cm nodule or infiltrate is in the left upper lobe. Remainder of the lungs and pleural spaces are clear. Bones and soft tissues: No significant findings. IMPRESSION: Indeterminate sub solid nodule or infiltrate measuring approximately 2 cm in the left upper lobe. A lesion in this location was also described on the prior study. Continued evaluation including CT is recommended to assess for malignancy if not already performed. Remainder of the exam is unremarkable. Dictated by Lake Freeman MD @ 06/29/2021 10:38:[address] Lake Freeman @ Jun 29 2021 10:38AM
[2021-06-29] MEDS ORDERED: Iopamidol 755 MG/ML 500 ML Multipack Bottle IVPUSH STA (11:16)
--- NOTE | 2021-06-29 12:12 | CT ---
INDICATION: Shortness of breath, abnormal chest x-ray. COMPARISON: Chest radiograph 06/29/2021 and 02/04/2015. TECHNIQUE: CT of the chest with 75 cc of Isovue 370 IV contrast. Coronal and sagittal reconstructions. FINDINGS: Normal heart size. Normal caliber thoracic aorta and central pulmonary arteries. Mild coronary artery calcifications. Negative for acute pulmonary embolism. No pericardial effusion. Few small mediastinal and bilateral hilar lymph nodes. No lymphadenopathy by size criteria. There are multifocal patchy ground-glass opacities throughout the lungs bilaterally which are likely infectious or inflammatory. No pleural effusion or pneumothorax. 4 mm noncalcified pulmonary nodule along the left major fissure (series 202, image 54). No central endobronchial lesion. The thyroid gland is normal in appearance. Small hiatal hernia. Cholecystectomy. Small splenule. The visualized upper abdomen is otherwise unremarkable. The bones are unremarkable. IMPRESSION: 1. Negative for acute pulmonary embolism. 2. Multifocal patchy ground-glass opacities throughout the lungs bilaterally are likely infectious or inflammatory. Rule out COVID pneumonia. 3. 4 mm noncalcified pulmonary nodule along the left major fissure. Please see follow-up guidelines below. [employer] GUIDELINES - SOLID NODULES: : SINGLE LOW RISK - nodule less than 6 mm: No routine follow-up. - nodule 6-8 mm: CT at 6-12 months, then consider CT at 18-24 months. - nodule greater than 8 mm: Consider CT at 3 months, PET/CT or tissue sampling. SINGLE HIGH RISK - nodule less than 6 mm: Optional CT at 12 months. - nodule 6-8 mm: CT at 6-12 months, then CT at 18-24 months. - nodule greater than 8 mm: Consider CT at 3 months, PET/CT or tissue sampling. Please note that all CT scans at this facility use dose modulation, iterative reconstruction, and/or weight-based dosing when appropriate to reduce radiation dose to as low as reasonably achievable. Dictated by Virginia Livingston MD @ 06/29/2021 12:10:[address] Virginia Livingston @ Jun 29 2021 12:10PM
[2021-06-29 13:17] VITALS: BP 123/82; PULSE 84
== END 2021-06-29 13:19 | disposition home or self-care (01) ==
LOC: MW.ED 07:14
DX: J98.8 Other specified respiratory disorders (principal); R91.1 Solitary pulmonary nodule; K21.9 Gastro-esophageal reflux disease without esophagitis; B34.9 Viral infection, unspecified; E66.9 Obesity, unspecified; Z68.35 Body mass index [BMI] 35.0-35.9, adult; Z90.49 Acquired absence of other specified parts of digestive tract; Z87.19 Personal history of other diseases of the digestive system; Z79.899 Other long term (current) drug therapy
CPT/HCPCS: 36415; 71046; 71260; 80053; 85025; 93005; 96365; 96375; 99284; A9270; J0696; J1885; J2405; J7030; Q9967; 93010

== ENCOUNTER 2021-07-10 09:51 | Inpatient (IN) | payer BC ==
--- NOTE | 2021-07-10 09:59 | EDM.PDOC ---
ED HPI GENERAL MEDICAL PROBLEM - General Chief Complaint: Upper Extremity Injury/Pain Stated Complaint: LEFT ARM PAIN, COVID POS Time Seen by Provider: 07/10/21 09:52 Source of Information: Reports: Patient History Limitations: Reports: No Limitations - History of Present Illness INITIAL COMMENTS - FREE TEXT/NARRATIVE: HISTORY AND PHYSICAL: History of present illness: Patient is a 50-year-old female who presents to the emergency room with complaints left arm pain x 1 week and shortness of breath, chest pain, nausea, vomiting, diarrhea and generalized fatigue x 2 weeks. Patient was seen at the walk-in clinic on 06/28/2021 and was tested for influenza and COVID-19. She was told the initial test was negative but 2 days later was informed the state test was positive for COVID-19. The walk-in clinic prescribed her doxycycline and steroid. She was seen in the emergency room on 06/29/2021 with her URI symptoms and had lab work along with chest x-ray and CTA of the chest. She was diagnosed with pneumonia. She was given a Z-Enmanuel to add to her doxycycline regiment. She completed her antibiotic regiment but continues to feel unwell. She was seen in the [facility] on 07/04/2021 for symptoms and left arm pain (from axilla to antecubital space). [facility] stated she may have a blood clot because her D-dimer was elevated, although they couldn't find "where it is in my body". She was not given any additional scans or ultrasounds of the extremity. States she continues to feel unwell and would like to be evaluated for a DVT. She states she feels no better than when she initially started having symptoms approximately 2 weeks ago. No recent extended sitting for travel. No hormone therapy. No previous history of PE/DVT. No known bleeding or clotting disorders. Patient denies any fever, chills, headache, change in vision, syncope or near syncope. Denies any back pain, abdominal pain, constipation or dysuria. Has not noted any blood in urine or stool. Patient has not been eating and drinking appropriately. Review of systems: As per history of present illness and below otherwise all systems reviewed and negative. Past medical history: As per history of present illness and as reviewed below otherwise noncontributory. Surgical history: As per history of present illness and as reviewed below otherwise noncontributory. Social history: See social history for further information Family history: As per history of present illness and as reviewed below otherwise noncontributory. Physical exam: General: Well developed and well nourished 50-year-old female. Alert and orientated x 3. Nontoxic in appearance and in mild distress due to anxiety/pain. Vital signs are stable and have been reviewed by me. Nursing notes were reviewed. Accompanied by who is attentive to 's needs. HEENT: Atraumatic, normocephalic, pupils equal and reactive bilaterally, negative for conjunctival pallor or scleral icterus, mucous membranes moist, throat clear, neck supple, nontender, trachea midline. No drooling or trismus noted. No meningeal signs. No hot potato voice noted. Lungs: Slightly diminished to auscultation bilaterally. No wheezes, rales, or rhonchi. Chest nontender. Normal work of breathing, no accessory muscles used. Heart: S1S2, regular rate and rhythm without overt murmur, gallops, or rubs. No JVD. No peripheral edema Abdomen: Soft, nondistended, nontender. Normoactive bowel sounds. Negative for masses or costovertebral tenderness. Skin: Cool, clammy, and intact. No lesions or rashes noted. Hematologic: No petechiae or purpra. Mucosa appropriate color and normal nail bed color and refill. Extremities: Atraumatic, moves all extremities per self without difficulty or deficits. Strong radial pulses bilaterally. Cap refill is at 3 seconds bilaterally to upper extremities. Mild perfusion noted, although appears dehydrated. Negative for cords or calf pain. Neurovascular unremarkable. Neuro: Awake, alert, oriented. Cranial nerves II through XII unremarkable. Cerebellum unremarkable. Motor and sensory unremarkable throughout. Exam nonfocal. Psychiatric: Mood and affect are appropriate. Normal thought process. Answering questions appropriately. Notes: *This patient was seen and evaluated during the 2019 SARS-CoV-2 novel coronavirus pandemic period. Community viral transmission is ongoing at time of this encounter and the emergency department is operating under pandemic response procedures. Patient is a 50-year-old female who presents to the emergency room with complaints of left arm pain x1 week. She states she is concerned that she has a blood clot from and IV she had in her left antecubital space over a week ago. She has pain from the antecubital site to her axilla. States nothing makes the pain better or worse. She has good strength to bilateral upper extremities with good cap refill. She was told at [facility]'s emergency room that her D-dimer was elevated (could be falsely elevated due to her being COVID-19 positive) but they were unable to find the source of where she would have a blood clot. She has no other risk factors such as recent travel, hormone therapy or history of PE/DVT. She has a secondary complaint of nausea, vomiting, diarrhea that has been persistent over the last 2 weeks. She had been on doxycycline and Z-Enmanuel for pneumonia, has completed these but does not feel any improvement with her shortness of breath or cough. She did have a PE study done here on 06/29/2021 which was negative for PE. Multifocal patchy groundglass opacities throughout the lungs bilaterally, likely infectious or inflammatory in nature. EKG is similar from 06/29/21: Sinus rhythm with rate of 86. Chest x-ray shows hyperinflation with extensive interstitial thickening and superimposed pulmonary fibrotic changes with likely mild pulmonary edema. Patient's potassium is 3.2, BUN 15, creatinine 1.4. Her troponin is negative. The ultrasound of the left upper extremity shows positive for acute DVT within the left subclavian, axillary, brachial, cephalic, and antecubital veins. Due to patient continuing to have nausea and vomiting I am concerned if she were to be sent home with Eliquis or Coumadin that she would not keep the medication down and not have therapeutic benefit. I have talked with the patient about today's findings, in addition to providing specific details for plan of care. Spoke with Dr Ayala, hospitalist on-call, who is agreeable to keeping this patient for further care and management. Requested Lovenox 1mg/kg given here. Since patient still has respiratory symptoms associated with her COVID-19 diagnosis from 06/28/2021 we will treat her as COVID positive still and put her in an isolation room. CESAR Pereira here to see patient for admission. Patient is vitally stable at this time. Will continue to monitor until shes transferred to the floor. Diagnostics: CBC, CMP, Troponin, EKG, CXR, PT/PTT, upper extremity US Therapeutics: IV fluids, Zofran, Ativan, Lovenox Impression: DVT, left upper extremity Dehydration Hypokalemia Recent COVID-19 infection Definitive disposition and diagnosis as appropriate pending reevaluation and review of above. Duration: Week(s): left arm Pain Score (Numeric/FACES): 8 - Related Data Allergies Allergy/AdvReac Type Severity Reaction Status Date / Time No Known Allergies Allergy Verified 07/10/21 10:14 Home Meds: Home Meds Methylphenidate HCl 10 mg PO ASDIRECTED 11/25/20 [History] Omeprazole 20 mg PO DAILY 11/25/20 [History] Pantoprazole Sodium [Protonix] 40 mg PO BEDTIME 11/25/20 [History] Vortioxetine Hydrobromide [Trintellix] 20 mg PO DAILY 11/25/20 [History] Ibuprofen 600 mg PO Q6HR PRN #30 tablet 06/29/21 [Rx] Ondansetron [Zofran ODT] 4 mg PO Q6H PRN #12 tab.dis 06/29/21 [Rx] Past Medical History HEENT History: Reports: Other (See Below) Other HEENT History: wears glasses Cardiovascular History: Reports: None Respiratory History: Reports: Sleep Apnea Other Respiratory History: uses CPAP, states had bronchitis and pneumonia in early Oct 2020 Gastrointestinal History: Reports: GERD Genitourinary History: Reports: None [employer] History: Reports: Musculoskeletal History: Reports: Fracture, Fibromyalgia Neurological History: Reports: Other (See Below) Other Neuro History: hx head injury Psychiatric History: Reports: ADHD, Anxiety, Depression Endocrine/Metabolic History: Reports: None, Obesity/BMI 30+ Hematologic History: Reports: None Immunologic History: Reports: None Oncologic (Cancer) History: Reports: None Dermatologic History: Reports: None - Infectious Disease History Infectious Disease History: Reports: Chicken Pox - Past Surgical History Head Surgeries/Procedures: Reports: None HEENT Surgical History: Reports: None Cardiovascular Surgical History: Reports: None Respiratory Surgical History: Reports: None GI Surgical History: Reports: Cholecystectomy Female Surgical History: Reports: Hysterectomy Endocrine Surgical History: Reports: None Neurological Surgical History: Reports: None Musculoskeletal Surgical History: Reports: ORIF Other Musculoskeletal Surgeries/Procedures:: ORIF fx right wrist Oncologic Surgical History: Reports: None Dermatological Surgical History: Reports: None Social & Family History - Family History Family Medical History: No Pertinent Family History - Caffeine Use Caffeine Use: Reports: None Review of Systems - Review of Systems Review Of Systems: Comprehensive ROS is negative, except as noted in HPI. ED EXAM, GENERAL - Physical Exam Exam: See Below (See dictation) Course - Vital Signs Last Recorded V/S: Last Vital Signs Temp 97.0 F 07/10/21 10:14 Pulse 91 07/10/21 11:33 Resp 17 07/10/21 11:33 BP 150/92 H 07/10/21 11:33 Pulse Ox 97 07/10/21 11:33 - Orders/Labs/Meds Orders: Active Orders 24 hr Category Date Time Status VL Duplex Upr Ext Veins Ltd Lt [US] Stat Exams 07/10/21 10:10 Taken UA RFX KELLY AND CULT IF INDIC [URIN] Stat Lab 07/10/21 10:10 Ordered Labs: Laboratory Tests 07/10/21 07/10/21 07/10/21 Range/Units 10:19 10:19 11:16 WBC 9.59 (4.0-11.0) K/uL RBC 4.90 (4.30-5.90) M/uL Hgb 13.6 (12.0-16.0) g/dL Hct 39.8 (36.0-46.0) % MCV 81.2 (80.0-98.0) fL MCH 27.8 (27.0-32.0) pg MCHC 34.2 (31.0-37.0) g/dL RDW Std Deviation 42.0 (28.0-62.0) fl RDW Coeff of Pooja 14 (11.0-15.0) % Plt Count 172 (150-400) K/uL MPV 10.60 (7.40-12.00) fL Neut % (Auto) 75.9 (48.0-80.0) % Lymph % (Auto) 14.6 L (16.0-40.0) % Person % (Auto) 8.8 (0.0-15.0) % Eos % (Auto) 0.6 (0.0-7.0) % Baso % (Auto) 0.1 (0.0-1.5) % Neut # (Auto) 7.3 H (1.4-5.7) K/uL Lymph # (Auto) 1.4 (0.6-2.4) K/uL Person # (Auto) 0.8 (0.0-0.8) K/uL Eos # (Auto) 0.1 (0.0-0.7) K/uL Baso # (Auto) 0.0 (0.0-0.1) K/uL Nucleated RBC % 0.0 /100WBC Nucleated RBCs # 0 K/uL Sodium 140 (136-145) mmol/L Potassium 3.2 L (3.5-5.1) mmol/L Chloride 104 (98-107) mmol/L Carbon Dioxide 26.6 (21.0-32.0) mmol/L BUN 15 (7.0-18.0) mg/dL Creatinine 1.4 H (0.6-1.0) mg/dL Est Cr Clr Drug Dosing 50.24 mL/min Estimated GFR (MDRD) 39.8 ml/min Glucose 121 H (74-106) mg/dL Lactic Acid 1.7 (0.4-2.0) mmol/L Calcium 8.5 (8.5-10.1) mg/dL Total Bilirubin 0.9 (0.2-1.0) mg/dL AST 21 (15-37) IU/L ALT 26 (14-63) IU/L Alkaline Phosphatase 135 H (46-116) U/L Troponin I < 0.050 (0.000-0.056) ng/mL Total Protein 7.0 (6.4-8.2) g/dL Albumin 2.8 L (3.4-5.0) g/dL Globulin 4.2 H (2.6-4.0) g/dL Albumin/Globulin Ratio 0.7 L (0.9-1.6) Meds: Medications Discontinued Medications Generic Name Dose Route Start Last Admin Trade Name Freq PRN Reason Stop Dose Admin Enoxaparin Sodium 115 mg 07/10/21 11:25 07/10/21 11:33 Enoxaparin 100 Mg/1 Ml Syringe SUBCUT 07/10/21 11:26 Not Given ONETIME ONE Enoxaparin Sodium 100 mg 07/10/21 11:30 Enoxaparin 100 Mg/1 Ml Syringe SUBCUT 07/10/21 11:31 ONETIME ONE Sodium Chloride 1,000 mls @ 999 mls/hr 07/10/21 10:13 07/10/21 10:18 Normal Saline IV 07/10/21 11:13 999 mls/hr STAT ONE Administration Lorazepam 0.5 mg 07/10/21 10:13 07/10/21 10:18 Lorazepam 2 Mg/Ml Sdv IVPUSH 07/10/21 10:14 0.5 mg ONETIME ONE Administration Ondansetron HCl 4 mg 07/10/21 10:13 07/10/21 10:18 Ondansetron 4 Mg/2 Ml Sdv IVPUSH 07/10/21 10:14 4 mg ONETIME ONE Administration Departure - Departure Time of Disposition: 12:11 Disposition: Refer to Observation Clinical Impression: COVID-19, Dehydration, Hypokalemia DVT of upper extremity (deep vein thrombosis) Qualifiers: Affected thrombotic vein of extremity: axillary Chronicity: acute Laterality: left Qualified Code(s): I82.A12 - Acute embolism and thrombosis of left axillary vein - Discharge Information Sepsis Event Note (ED) - Focused Exam Vital Signs: Vital Signs Temp Pulse Resp BP Pulse Ox 07/10/21 11:09 83 18 140/80 97 07/10/21 10:39 83 18 141/75 H 98 07/10/21 10:14 97.0 F 93 18 134/73 97 - My Orders Last 24 Hours: My Active Orders 07/10/21 10:10 VL Duplex Upr Ext Veins Ltd Lt [US] Stat UA RFX KELLY AND CULT IF INDIC [URIN] Stat - Assessment/Plan Last 24 Hours: My Active Orders 07/10/21 10:10 VL Duplex Upr Ext Veins Ltd Lt [US] Stat UA RFX KELLY AND CULT IF INDIC [URIN] Stat
[2021-07-10] MEDS ORDERED: LORazepam 2 MG/ML SDV IVPUSH ONE (10:13)
[2021-07-10] MEDS ORDERED: Ondansetron 4 MG/2 ML SDV IVPUSH ONE ×2 (10:13→12:44)
[2021-07-10] MEDS ORDERED: Sodium Chloride 0.9% 1,000 ML IV ONE (10:13)
--- NOTE | 2021-07-10 10:25 | PCM.EKG ---
#1 Interpretation Time: 10:24 EKG Interpretation Comments: 86, normal sinus rhythm mild ST depression relatively unchanged as compared to prior EKG
--- NOTE | 2021-07-10 10:51 | CR ---
Indication: Shortness of breath Comparison: None available. Technique: Single AP view chest Findings: There is hyperinflation and chronic interstitial change. There are extensive interstitial opacities seen throughout the bilateral hemithoraces likely representing moderate pulmonary fibrotic changes with superimposed pulmonary vascular congestion. The cardiac silhouette is stable. The bony thorax is grossly intact. Impression: Hyperinflation with extensive interstitial thickening and superimposed pulmonary fibrotic changes with likely mild pulmonary edema. Dictated by Godwin Richards MD @ 07/10/2021 10:49:[address] Godwin Richards @ Jul 10 2021 10:49AM
[2021-07-10 10:53] LABS: BLOOD UREA NITROGEN,BUN 15 mg/dL (7.0-18.0); CARBON DIOXIDE,CO2 26.6 mmol/L (21.0-32.0); CHLORIDE,CL 104 mmol/L (98-107); GLUCOSE RANDOM 121 mg/dL (74-106); POTASSIUM,K 3.2 mmol/L (3.5-5.1); SODIUM,NA 140 mmol/L (136-145)
[2021-07-10] MEDS ORDERED: Enoxaparin 100 MG/1 ML Syringe SUBCUT ONE ×2 (11:25→11:30)
--- NOTE | 2021-07-10 12:07 | US ---
INDICATION: Pain in left arm. COMPARISON: None. TECHNIQUE: A compression venous ultrasound exam was performed of the left upper extremity using jacques-scale imaging, color Doppler, and spectral Doppler analysis. FINDINGS: There is thrombus within the left subclavian, axillary, brachial, cephalic, and antecubital veins with incompressibility and lack of Doppler flow. The internal jugular and innominate veins were not imaged. The radial and ulnar veins are patent and negative for thrombus. IMPRESSION: 1. Positive for acute DVT within the left subclavian, axillary, brachial, cephalic, and antecubital veins. 2. Findings discussed with Brett Mack at 12:05pm on 07/10/2021. Dictated by Virginia Livingston MD @ 07/10/2021 12:04:15 PM (Electronically Signed)
[2021-07-10] MEDS ORDERED: Morphine 4 MG/ML Syringe IVPUSH ONE (12:44)
[2021-07-10] MEDS ORDERED: Sodium Chloride 0.9% 2.5 ML Syringe FLUSH PRN (13:05)
[2021-07-10] MEDS ORDERED: Albuterol/Ipratropium 4 GM Inhalation Spray INH PRN (13:05)
--- NOTE | 2021-07-10 13:05 | PCM.HP.2 ---
H&P History of Present Illness - General Date of Service: 07/10/21 Admit Problem/Dx: Admission Diagnosis/Problem Admission Diagnosis/Problem DVT, Deep venous thrombosis of upper extremity Source of Information: Patient History Limitations: Reports: No Limitations - History of Present Illness Initial Comments - Free Text/Narative: This 50-year-old female with past medical history of presented to the ER with complaints of left arm pain along with shortness of breath, chest pain, nausea, vomiting, diarrhea and generalized fatigue x2 weeks. She was initially diagnosed with COVID-19 on 06/28 she was treated with doxycycline and steroid. She came in to the ER on 06/29 and had a CTA of the chest along with chest x-ray she was diagnosed with pneumonia and azithromycin was added to doxycycline regimen. He has since completed her antibiotic regimen but continues to feel un well. On 07/04/2021 she was evaluated in [place] ER with the similar symptoms along with increasing left arm pain. Her D-dimer was found to be elevated but they did not find location of possible DVT/PE. She had no additional scans of her body at this time. She continues to feel unwell continues to feel short of breath with generalized fatigue and malaise. She reports nearly continuous hacking cough that is nonproductive. Denies any chest pain. Denies any abdominal pain but does report nausea and inability to eat or keep food down. She reports pain to left upper extremity with intermittent numbness and tingling and coolness. She denies any history of previous DVT/PE she is not on any h ormone therapy and has had no recent travel. She denies any known bleeding or clotting disorders. She denies any tobacco use no recreational drug use and rare occasional alcohol use. In the ER no leukocytosis noted hemoglobin 13.6 platelet count 172,000. Potassium 3.2 BUN 25 creatinine 1.4 glucose 121 troponin negative. Chest x-ray reveals hyperinflation extensive interstitial thickening and superimposed pulmonary fibrotic changes with likely mild pulmonary edema. EKG 86 normal sinus rhythm otherwise unchanged compared to prior EKG. In the ER she was treated with Lovenox 115 mg subcu x1. She was also given 1 L normal saline along with Zofran and Ativan. Left upper extremity ultrasound reveals acute DVT within the left subclavian axillary brachial cephalic and antecubital veins. T he radial and ulnar veins are patent and negative for thrombus. In the ER provider did speak with interventional radiologist and Janee Gomez for recommendations on extensive clot at this time he recommended no further intervention besides anticoagulation. She will be admitted observation for a cute left upper arm DVT. left arm Pain Score (Numeric/FACES): 8 - Related Data Allergies/Adverse Reactions: Allergies Allergy/AdvReac Type Severity Reaction Status Date / Time No Known Allergies Allergy Verified 07/10/21 10:14 Home Medications: Home Meds Methylphenidate HCl 10 mg PO ASDIRECTED 11/25/20 [History] Omeprazole 20 mg PO DAILY 11/25/20 [History] Ibuprofen 600 mg PO Q6HR PRN #30 tablet 06/29/21 [Rx] Past Medical History HEENT History: Reports: Other (See Below) Other HEENT History: wears glasses Cardiovascular History: Reports: None Respiratory History: Reports: Sleep Apnea Other Respiratory History: uses CPAP, states had bronchitis and pneumonia in early Oct 2020 Gastrointestinal History: Reports: GERD Genitourinary History: Reports: None 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: Musculoskeletal History: Reports: Fracture, Fibromyalgia Neurological History: Reports: Other (See Below) Other Neuro History: hx head injury Psychiatric History: Reports: ADHD, Anxiety, Depression Endocrine/Metabolic History: Reports: None, Obesity/BMI 30+ Hematologic History: Reports: None Immunologic History: Reports: None Oncologic (Cancer) History: Reports: None Dermatologic History: Reports: None - Infectious Disease History Infectious Disease History: Reports: Chicken Pox, Novel Coronavirus - Past Surgical History Head Surgeries/Procedures: Reports: None HEENT Surgical History: Reports: None Cardiovascular Surgical History: Reports: None Respiratory Surgical History: Reports: None GI Surgical History: Reports: Cholecystectomy Female Surgical History: Reports: Hysterectomy Endocrine Surgical History: Reports: None Neurological Surgical History: Reports: None Musculoskeletal Surgical History: Reports: ORIF Other Musculoskeletal Surgeries/Procedures:: ORIF fx right wrist Oncologic Surgical History: Reports: None Dermatological Surgical History: Reports: None Social & Family History - Family History Family Medical History: No Pertinent Family History - Tobacco Use Tobacco Use Status *Q: Never Tobacco User - Caffeine Use Caffeine Use: Reports: None - Alcohol Use Alcohol Use Frequency: Rarely, Socially H&P Review of Systems - Review of Systems: Review Of Systems: See Below General: Reports: Malaise, Weakness, Fatigue Pulmonary: Reports: Shortness of Breath, Cough. Denies: Sputum Cardiovascular: Reports: Dyspnea on Exertion Gastrointestinal: Reports: Decreased Appetite, Nausea, Vomiting. Denies: Abdominal Pain, Black Stool, Bloody Stool Genitourinary: Reports: No Symptoms. Denies: Dysuria, Frequency, Burning Musculoskeletal: Reports: No Symptoms Skin: Reports: No Symptoms Psychiatric: Reports: No Symptoms Neurological: Reports: No Symptoms Hematologic/Lymphatic: Reports: No Symptoms Immunologic: Reports: No Symptoms Exam - Exam Exam: See Below - Vital Signs Vital Signs: Last Vital Signs Temp 97.0 F 07/10/21 10:14 Pulse 91 07/10/21 11:33 Resp 17 07/10/21 11:33 BP 150/92 H 07/10/21 11:33 Pulse Ox 97 07/10/21 11:33 Weight: 117.934 kg - Exam Quality Assessment: DVT Prophylaxis. No: Supplemental Oxygen General: Alert, Oriented, Cooperative HEENT: Conjunctiva Clear, Mucosa Moist & Slick, Posterior Pharynx Clear Lungs: Clear to Auscultation. No: Normal Respiratory Effort (dyspnea) Cardiovascular: Regular Rate, Regular Rhythm GI/Abdominal Exam: Normal Bowel Sounds, Soft, Non-Tender Extremities: Normal Inspection, Normal Range of Motion, Non-Tender, No Pedal Edema Peripheral Pulses: 2+: Radial (L) Skin: Other (L arm cool with mild cyanosis, pulses present, sensation intact. swelling noted, non pitting +1) Neuro Extensive - Mental Status: Alert, Oriented x3, Normal Mood/Affect Neuro Extensive - Motor, Sensory, Reflexes: CN II-XII Intact Psychiatric: Alert, Normal Affect, Normal Mood - Patient Data Lab Results Last 24 hrs: Laboratory Results - last 24 hr 07/10/21 07/10/21 07/10/21 Range/Units 10:19 10:19 10:19 WBC 9.59 (4.0-11.0) K/uL RBC 4.90 (4.30-5.90) M/uL Hgb 13.6 (12.0-16.0) g/dL Hct 39.8 (36.0-46.0) % MCV 81.2 (80.0-98.0) fL MCH 27.8 (27.0-32.0) pg MCHC 34.2 (31.0-37.0) g/dL RDW Std Deviation 42.0 (28.0-62.0) fl RDW Coeff of Pooja 14 (11.0-15.0) % Plt Count 172 (150-400) K/uL MPV 10.60 (7.40-12.00) fL Neut % (Auto) 75.9 (48.0-80.0) % Lymph % (Auto) 14.6 L (16.0-40.0) % [place] % (Auto) 8.8 (0.0-15.0) % Eos % (Auto) 0.6 (0.0-7.0) % Baso % (Auto) 0.1 (0.0-1.5) % Neut # (Auto) 7.3 H (1.4-5.7) K/uL Lymph # (Auto) 1.4 (0.6-2.4) K/uL [place] # (Auto) 0.8 (0.0-0.8) K/uL Eos # (Auto) 0.1 (0.0-0.7) K/uL Baso # (Auto) 0.0 (0.0-0.1) K/uL Nucleated RBC % 0.0 /100WBC Nucleated RBCs # 0 K/uL INR 1.13 APTT 22.2 (18.6-31.3) SEC Sodium 140 (136-145) mmol/L Potassium 3.2 L (3.5-5.1) mmol/L Chloride 104 (98-107) mmol/L Carbon Dioxide 26.6 (21.0-32.0) mmol/L BUN 15 (7.0-18.0) mg/dL Creatinine 1.4 H (0.6-1.0) mg/dL Est Cr Clr Drug Dosing 50.24 mL/min Estimated GFR (MDRD) 39.8 ml/min Glucose 121 H (74-106) mg/dL Lactic Acid (0.4-2.0) mmol/L Calcium 8.5 (8.5-10.1) mg/dL Total Bilirubin 0.9 (0.2-1.0) mg/dL AST 21 (15-37) IU/L ALT 26 (14-63) IU/L Alkaline Phosphatase 135 H (46-116) U/L Troponin I < 0.050 (0.000-0.056) ng/mL Total Protein 7.0 (6.4-8.2) g/dL Albumin 2.8 L (3.4-5.0) g/dL Globulin 4.2 H (2.6-4.0) g/dL Albumin/Globulin Ratio 0.7 L (0.9-1.6) 07/10/21 Range/Units 11:16 WBC (4.0-11.0) K/uL RBC (4.30-5.90) M/uL Hgb (12.0-16.0) g/dL Hct (36.0-46.0) % MCV (80.0-98.0) fL MCH (27.0-32.0) pg MCHC (31.0-37.0) g/dL RDW Std Deviation (28.0-62.0) fl RDW Coeff of Pooja (11.0-15.0) % Plt Count (150-400) K/uL MPV (7.40-12.00) fL Neut % (Auto) (48.0-80.0) % Lymph % (Auto) (16.0-40.0) % [place] % (Auto) (0.0-15.0) % Eos % (Auto) (0.0-7.0) % Baso % (Auto) (0.0-1.5) % Neut # (Auto) (1.4-5.7) K/uL Lymph # (Auto) (0.6-2.4) K/uL [place] # (Auto) (0.0-0.8) K/uL Eos # (Auto) (0.0-0.7) K/uL Baso # (Auto) (0.0-0.1) K/uL Nucleated RBC % /100WBC Nucleated RBCs # K/uL INR APTT (18.6-31.3) SEC Sodium (136-145) mmol/L Potassium (3.5-5.1) mmol/L Chloride (98-107) mmol/L Carbon Dioxide (21.0-32.0) mmol/L BUN (7.0-18.0) mg/dL Creatinine (0.6-1.0) mg/dL Est Cr Clr Drug Dosing mL/min Estimated GFR (MDRD) ml/min Glucose (74-106) mg/dL Lactic Acid 1.7 (0.4-2.0) mmol/L Calcium (8.5-10.1) mg/dL Total Bilirubin (0.2-1.0) mg/dL AST (15-37) IU/L ALT (14-63) IU/L Alkaline Phosphatase (46-116) U/L Troponin I (0.000-0.056) ng/mL Total Protein (6.4-8.2) g/dL Albumin (3.4-5.0) g/dL Globulin (2.6-4.0) g/dL Albumin/Globulin Ratio (0.9-1.6) Result Diagrams: 07/10/21 10:19 07/10/21 10:19 Sepsis Event Note - Evaluation Sepsis Screening Result: No Definite Risk - Focused Exam Vital Signs: Vital Signs Temp Pulse Resp BP Pulse Ox 07/10/21 11:33 91 17 150/92 H 97 07/10/21 11:09 83 18 140/80 97 07/10/21 10:39 83 18 141/75 H 98 07/10/21 10:14 97.0 F 93 18 134/73 97 - Problem List (1) DVT of upper extremity (deep vein thrombosis) SNOMED Code(s): 041710062 ICD Code: I82.629 - ACUTE EMBOLISM AND THROMBOSIS OF DEEP VN UNSP UP EXTREM Status: Acute Current Visit: Yes Qualifiers: Affected thrombotic vein of extremity: axillary Chronicity: acute Laterality: left Qualified Code(s): I82.A12 - Acute embolism and thrombosis of left axillary vein (2) COVID-19 SNOMED Code(s): 830212487 ICD Code: U07.1 - COVID-19 Status: Acute Current Visit: Yes (3) Dehydration SNOMED Code(s): 69028688 ICD Code: E86.0 - DEHYDRATION Status: Acute Current Visit: Yes (4) Hypokalemia SNOMED Code(s): 72443206 ICD Code: E87.6 - HYPOKALEMIA Status: Acute Current Visit: Yes (5) Nausea & vomiting SNOMED Code(s): 39359127 ICD Code: R11.2 - NAUSEA WITH VOMITING, UNSPECIFIED Status: Acute Current Visit: Yes (6) ADD (attention deficit disorder) SNOMED Code(s): 27203881 ICD Code: F98.8 - OTH BEHAV/EMOTN DISORD W ONSET USLY OCCUR IN CHLDHD AND ADOL Status: Chronic Current Visit: Yes Problem List Initiated/Reviewed/Updated: Yes Orders Last 24hrs: Active Orders 24 hr Category Date Time Status Admission Status [Patient Status] [ADT] Stat ADT 07/10/21 11:26 Active UA RFX KELLY AND CULT IF INDIC [URIN] Stat Lab 07/10/21 10:10 Ordered Assessment/Plan Comment:: This 50-year-old female admitted with left upper extremity DVT and COVID-19 infection 1. Acute left upper extremity DVT Continue Lovenox 120 mg every 12 SQ Consider transitioning to Eliquis when stable Morphine as needed pain -CMS checks every 4 hours -Elevate arm as much as possible Interventional radiology consulted via telephone in ER they recommended no furt her treatments at this time besides anticoagulation 2. COVID-19 infection -Currently not hypoxic -We will continue supportive care -Combivent as needed -Zofran as needed nausea -Oxygen as needed to keep sats greater than 92% notify MD if oxygen is needed -Robitussin with codeine along with Tessalon Perles as needed cough -Encourage I-S and proning - Nausea doesn't improve with Zofran, will trial Phenergan. -Discussed with her that currently she is not meeting criteria for remdesivir treatment but we will continue to monitor closely if she were to develop any hypoxia. She asked about monoclonal antibodies along with plasma treatment. She was counseled that monoclonal antibody treatment is unavailable when admitted inpatient. And plasma treatment needs to be done within 3 days of illness otherwise her body is likely developed antibodies to help fight the viru s. She verbalized understanding. 3. Hypokalemia - Replace 40 meq in 1 L IVF tonight, recheck in am. 4. ADHD -Continue home medications GI prophylaxis Protonix CODE STATUS: DNR/DNI confirmed with patient, at bedside during this conversation Dispo: 1 to 2 days pending improvement
[2021-07-10] MEDS ORDERED: Pantoprazole 40 MG Vial IV SCH (13:15)
[2021-07-10] MEDS: Morphine 4 MG/ML Syringe IVPUSH PRN ×2 (14:37→20:03)
[2021-07-10] MEDS: Pantoprazole 40 MG in Sodium Chloride 0.9% 10 ML IV SCH (14:42)
[2021-07-10] MEDS: Ondansetron 4 MG/2 ML SDV IVPUSH PRN (14:44)
[2021-07-10] MEDS ORDERED: Sodium Chloride 0.9% with KCl 1,000 ML IV ONE (15:14)
[2021-07-10] MEDS: Promethazine 25 MG/ML SDV IM PRN (15:45)
[2021-07-10] MEDS: Codeine/guaiFENesin 10-100 MG/5 ML Syrup 5 ML Cup PO PRN (23:02)
[2021-07-10] MEDS: Enoxaparin 150 MG/1 ML Syringe SUBCUT SCH (23:03)
[2021-07-10] MEDS: oxyCODONE 5 MG Tab PO PRN (23:17)
[2021-07-11 07:29] LABS: CARBON DIOXIDE,CO2 24.3 mmol/L (21.0-32.0); POTASSIUM,K 3.8 mmol/L (3.5-5.1)
--- NOTE | 2021-07-11 09:02 | PCM.PN ---
- General Info Date of Service: 07/11/21 Admission Dx/Problem (Free Text): Admission Diagnosis/Problem Admission Diagnosis/Problem DVT, Deep venous thrombosis of upper extremity Subjective Update: feelnig improved today, denies chest pain, has SOB especially with ambulation. Nausea improved, tolerating CL diet. L arm pain much improved today, but pain medicine helping. Sensation to L arm intact. Functional Status: Reports: Pain Controlled, Tolerating Diet, Ambulating, Urinating - Review of Systems General: Reports: Fatigue, Malaise HEENT: Reports: Headaches. Denies: Sore Throat, Visual Changes Pulmonary: Reports: Shortness of Breath, Cough. Denies: Sputum, Hemoptysis, Wheezing Cardiovascular: Reports: Dyspnea on Exertion Gastrointestinal: Reports: No Symptoms. Denies: Abdominal Pain, Nausea, Vomiting Genitourinary: Reports: No Symptoms. Denies: Dysuria, Frequency, Burning Musculoskeletal: Reports: No Symptoms Skin: Reports: No Symptoms Neurological: Reports: No Symptoms Psychiatric: Reports: No Symptoms - Patient Data Vitals - Most Recent: Last Vital Signs Temp 98.4 F 07/11/21 04:31 Pulse 89 07/11/21 04:31 Resp 20 07/11/21 04:31 BP 99/54 L 07/11/21 04:31 Pulse Ox 92 L 07/11/21 04:31 Weight - Most Recent: 106.849 kg I&O - Last 24 Hours: Intake & Output 07/10/21 07/11/21 07/11/21 22:59 06:59 14:59 Intake Total 1500 Output Total 0 Balance 1500 Lab Results Last 24 Hours: Laboratory Results - last 24 hr 07/10/21 07/10/21 07/10/21 Range/Units 10:19 10:19 10:19 WBC 9.59 (4.0-11.0) K/uL RBC 4.90 (4.30-5.90) M/uL Hgb 13.6 (12.0-16.0) g/dL Hct 39.8 (36.0-46.0) % MCV 81.2 (80.0-98.0) fL MCH 27.8 (27.0-32.0) pg MCHC 34.2 (31.0-37.0) g/dL RDW Std Deviation 42.0 (28.0-62.0) fl RDW Coeff of Pooja 14 (11.0-15.0) % Plt Count 172 (150-400) K/uL MPV 10.60 (7.40-12.00) fL Neut % (Auto) 75.9 (48.0-80.0) % Lymph % (Auto) 14.6 L (16.0-40.0) % [place] % (Auto) 8.8 (0.0-15.0) % Eos % (Auto) 0.6 (0.0-7.0) % Baso % (Auto) 0.1 (0.0-1.5) % Neut # (Auto) 7.3 H (1.4-5.7) K/uL Lymph # (Auto) 1.4 (0.6-2.4) K/uL [place] # (Auto) 0.8 (0.0-0.8) K/uL Eos # (Auto) 0.1 (0.0-0.7) K/uL Baso # (Auto) 0.0 (0.0-0.1) K/uL Nucleated RBC % 0.0 /100WBC Nucleated RBCs # 0 K/uL INR 1.13 APTT 22.2 (18.6-31.3) SEC Sodium 140 (136-145) mmol/L Potassium 3.2 L (3.5-5.1) mmol/L Chloride 104 (98-107) mmol/L Carbon Dioxide 26.6 (21.0-32.0) mmol/L BUN 15 (7.0-18.0) mg/dL Creatinine 1.4 H (0.6-1.0) mg/dL Est Cr Clr Drug Dosing 50.24 mL/min Estimated GFR (MDRD) 39.8 ml/min Glucose 121 H (74-106) mg/dL Lactic Acid (0.4-2.0) mmol/L Calcium 8.5 (8.5-10.1) mg/dL Magnesium (1.8-2.4) mg/dL Total Bilirubin 0.9 (0.2-1.0) mg/dL AST 21 (15-37) IU/L ALT 26 (14-63) IU/L Alkaline Phosphatase 135 H (46-116) U/L Troponin I < 0.050 (0.000-0.056) ng/mL Total Protein 7.0 (6.4-8.2) g/dL Albumin 2.8 L (3.4-5.0) g/dL Globulin 4.2 H (2.6-4.0) g/dL Albumin/Globulin Ratio 0.7 L (0.9-1.6) 07/10/21 07/11/21 07/11/21 Range/Units 11:16 05:21 05:21 WBC 7.09 (4.0-11.0) K/uL RBC 4.12 L (4.30-5.90) M/uL Hgb 11.5 L (12.0-16.0) g/dL Hct 34.9 L (36.0-46.0) % MCV 84.7 (80.0-98.0) fL MCH 27.9 (27.0-32.0) pg MCHC 33.0 (31.0-37.0) g/dL RDW Std Deviation 43.8 (28.0-62.0) fl RDW Coeff of Pooja 15 (11.0-15.0) % Plt Count 147 L (150-400) K/uL MPV 11.50 (7.40-12.00) fL Neut % (Auto) 57.7 (48.0-80.0) % Lymph % (Auto) 28.5 (16.0-40.0) % [place] % (Auto) 12.0 (0.0-15.0) % Eos % (Auto) 1.7 (0.0-7.0) % Baso % (Auto) 0.1 (0.0-1.5) % Neut # (Auto) 4.1 (1.4-5.7) K/uL Lymph # (Auto) 2.0 (0.6-2.4) K/uL [place] # (Auto) 0.9 H (0.0-0.8) K/uL Eos # (Auto) 0.1 (0.0-0.7) K/uL Baso # (Auto) 0.0 (0.0-0.1) K/uL Nucleated RBC % 0.0 /100WBC Nucleated RBCs # 0 K/uL INR APTT (18.6-31.3) SEC Sodium 141 (136-145) mmol/L Potassium 3.8 (3.5-5.1) mmol/L Chloride 107 (98-107) mmol/L Carbon Dioxide 24.3 (21.0-32.0) mmol/L BUN 13 (7.0-18.0) mg/dL Creatinine 1.0 (0.6-1.0) mg/dL Est Cr Clr Drug Dosing 70.34 mL/min Estimated GFR (MDRD) 58.7 ml/min Glucose 85 (74-106) mg/dL Lactic Acid 1.7 (0.4-2.0) mmol/L Calcium 8.0 L (8.5-10.1) mg/dL Magnesium 2.0 (1.8-2.4) mg/dL Total Bilirubin (0.2-1.0) mg/dL AST (15-37) IU/L ALT (14-63) IU/L Alkaline Phosphatase (46-116) U/L Troponin I (0.000-0.056) ng/mL Total Protein (6.4-8.2) g/dL Albumin (3.4-5.0) g/dL Globulin (2.6-4.0) g/dL Albumin/Globulin Ratio (0.9-1.6) Med Orders - Current: Current Medications Acetaminophen (Acetaminophen 325 Mg Tab) 650 mg PO Q4H PRN PRN Reason: Pain (Mild 1-3)/fever Albuterol/Ipratropium (Albuterol/Ipratropium 4 Gm Inhalation [place]) 0 gm INH Q4HRRT PRN PRN Reason: Dyspnea Benzonatate (Benzonatate 100 Mg Cap) 200 mg PO Q8H PRN PRN Reason: Cough Enoxaparin Sodium (Enoxaparin 150 Mg/1 Ml Syringe) 120 mg SUBCUT Q12H [facility] Last Admin: 07/10/21 23:03 Dose: 120 mg Documented by: Guaifenesin/Codeine Phosphate (Codeine/Guaifenesin 10-100 Mg/5 Ml Syrup 5 Ml Cup) 5 ml PO Q4H PRN PRN Reason: Cough Last Admin: 07/10/21 23:02 Dose: 5 ml Documented by: Pantoprazole Sodium 40 mg/ (Sodium Chloride) 10 mls @ 300 mls/hr IV Q24H [facility] Last Admin: 07/10/21 14:42 Dose: 300 mls/hr Documented by: Morphine Sulfate (Morphine 4 Mg/Ml Syringe) 3 mg IVPUSH Q2H PRN PRN Reason: Pain Last Admin: 07/10/21 20:03 Dose: 3 mg Documented by: Ondansetron HCl (Ondansetron 4 Mg/2 Ml Sdv) 4 mg IVPUSH Q4H PRN PRN Reason: Nausea Last Admin: 07/10/21 14:44 Dose: 4 mg Documented by: Oxycodone HCl (Oxycodone 5 Mg Tab) 5 mg PO Q4H PRN PRN Reason: Pain Last Admin: 07/10/21 23:17 Dose: 5 mg Documented by: Promethazine HCl (Promethazine 25 Mg/Ml Sdv) 25 mg IM Q4H PRN PRN Reason: Nausea Last Admin: 07/10/21 15:45 Dose: 25 mg Documented by: Sodium Chloride (Sodium Chloride 0.9% 2.5 Ml Syringe) 2.5 ml FLUSH ASDIRECTED PRN PRN Reason: Keep Vein Open Discontinued Medications Enoxaparin Sodium (Enoxaparin 100 Mg/1 Ml Syringe) 115 mg SUBCUT ONETIME ONE Stop: 07/10/21 11:26 Last Admin: 07/10/21 11:33 Dose: Not Given Documented by: Enoxaparin Sodium (Enoxaparin 100 Mg/1 Ml Syringe) 100 mg SUBCUT ONETIME ONE Stop: 07/10/21 11:31 Last Admin: 07/10/21 13:10 Dose: 100 mg Documented by: Sodium Chloride (Normal Saline) 1,000 mls @ 999 mls/hr IV STAT ONE Stop: 07/10/21 11:13 Last Admin: 07/10/21 10:18 Dose: 999 mls/hr Documented by: Potassium Chloride/Sodium Chloride (Normal Saline With 40 Meq Kcl) 1,000 mls @ 125 mls/hr IV ONETIME ONE Stop: 07/10/21 23:13 Last Admin: 07/10/21 15:47 Dose: 125 mls/hr Documented by: Lorazepam (Lorazepam 2 Mg/Ml Sdv) 0.5 mg IVPUSH ONETIME ONE Stop: 07/10/21 10:14 Last Admin: 07/10/21 10:18 Dose: 0.5 mg Documented by: Morphine Sulfate (Morphine 4 Mg/Ml Syringe) 4 mg IVPUSH ONETIME ONE Stop: 07/10/21 12:45 Last Admin: 07/10/21 13:10 Dose: 4 mg Documented by: Ondansetron HCl (Ondansetron 4 Mg/2 Ml Sdv) 4 mg IVPUSH ONETIME ONE Stop: 07/10/21 10:14 Last Admin: 07/10/21 10:18 Dose: 4 mg Documented by: Ondansetron HCl (Ondansetron 4 Mg/2 Ml Sdv) 4 mg IVPUSH ONETIME ONE Stop: 07/10/21 12:45 Last Admin: 07/10/21 13:10 Dose: 4 mg Documented by: - Exam Quality Assessment: DVT Prophylaxis. No: Supplemental Oxygen General: Alert, Oriented, Cooperative, No Acute Distress HEENT: Pupils Equal, Pupils Reactive Lungs: Clear to Auscultation. No: Normal Respiratory Effort (dyspnea with speech and ambulation) Cardiovascular: Regular Rate, Regular Rhythm GI/Abdominal Exam: Normal Bowel Sounds, Soft, Tender Back Exam: Normal Inspection, Full Range of Motion Extremities: Arm Pain (Left, with edema. Arm is warm to touch, sensation intact, CMS intact. No further cyanosis) Neurological: No New Focal Deficit Psy/Mental Status: Alert, Normal Affect, Normal Mood - Patient Data Lab Results Last 24 hrs: Laboratory Results - last 24 hr 07/10/21 07/10/21 07/10/21 Range/Units 10:19 10:19 10:19 WBC 9.59 (4.0-11.0) K/uL RBC 4.90 (4.30-5.90) M/uL Hgb 13.6 (12.0-16.0) g/dL Hct 39.8 (36.0-46.0) % MCV 81.2 (80.0-98.0) fL MCH 27.8 (27.0-32.0) pg MCHC 34.2 (31.0-37.0) g/dL RDW Std Deviation 42.0 (28.0-62.0) fl RDW Coeff of Pooja 14 (11.0-15.0) % Plt Count 172 (150-400) K/uL MPV 10.60 (7.40-12.00) fL Neut % (Auto) 75.9 (48.0-80.0) % Lymph % (Auto) 14.6 L (16.0-40.0) % [place] % (Auto) 8.8 (0.0-15.0) % Eos % (Auto) 0.6 (0.0-7.0) % Baso % (Auto) 0.1 (0.0-1.5) % Neut # (Auto) 7.3 H (1.4-5.7) K/uL Lymph # (Auto) 1.4 (0.6-2.4) K/uL [place] # (Auto) 0.8 (0.0-0.8) K/uL Eos # (Auto) 0.1 (0.0-0.7) K/uL Baso # (Auto) 0.0 (0.0-0.1) K/uL Nucleated RBC % 0.0 /100WBC Nucleated RBCs # 0 K/uL INR 1.13 APTT 22.2 (18.6-31.3) SEC Sodium 140 (136-145) mmol/L Potassium 3.2 L (3.5-5.1) mmol/L Chloride 104 (98-107) mmol/L Carbon Dioxide 26.6 (21.0-32.0) mmol/L BUN 15 (7.0-18.0) mg/dL Creatinine 1.4 H (0.6-1.0) mg/dL Est Cr Clr Drug Dosing 50.24 mL/min Estimated GFR (MDRD) 39.8 ml/min Glucose 121 H (74-106) mg/dL Lactic Acid (0.4-2.0) mmol/L Calcium 8.5 (8.5-10.1) mg/dL Magnesium (1.8-2.4) mg/dL Total Bilirubin 0.9 (0.2-1.0) mg/dL AST 21 (15-37) IU/L ALT 26 (14-63) IU/L Alkaline Phosphatase 135 H (46-116) U/L Troponin I < 0.050 (0.000-0.056) ng/mL Total Protein 7.0 (6.4-8.2) g/dL Albumin 2.8 L (3.4-5.0) g/dL Globulin 4.2 H (2.6-4.0) g/dL Albumin/Globulin Ratio 0.7 L (0.9-1.6) 07/10/21 07/11/21 07/11/21 Range/Units 11:16 05:21 05:21 WBC 7.09 (4.0-11.0) K/uL RBC 4.12 L (4.30-5.90) M/uL Hgb 11.5 L (12.0-16.0) g/dL Hct 34.9 L (36.0-46.0) % MCV 84.7 (80.0-98.0) fL MCH 27.9 (27.0-32.0) pg MCHC 33.0 (31.0-37.0) g/dL RDW Std Deviation 43.8 (28.0-62.0) fl RDW Coeff of Pooja 15 (11.0-15.0) % Plt Count 147 L (150-400) K/uL MPV 11.50 (7.40-12.00) fL Neut % (Auto) 57.7 (48.0-80.0) % Lymph % (Auto) 28.5 (16.0-40.0) % [place] % (Auto) 12.0 (0.0-15.0) % Eos % (Auto) 1.7 (0.0-7.0) % Baso % (Auto) 0.1 (0.0-1.5) % Neut # (Auto) 4.1 (1.4-5.7) K/uL Lymph # (Auto) 2.0 (0.6-2.4) K/uL [place] # (Auto) 0.9 H (0.0-0.8) K/uL Eos # (Auto) 0.1 (0.0-0.7) K/uL Baso # (Auto) 0.0 (0.0-0.1) K/uL Nucleated RBC % 0.0 /100WBC Nucleated RBCs # 0 K/uL INR APTT (18.6-31.3) SEC Sodium 141 (136-145) mmol/L Potassium 3.8 (3.5-5.1) mmol/L Chloride 107 (98-107) mmol/L Carbon Dioxide 24.3 (21.0-32.0) mmol/L BUN 13 (7.0-18.0) mg/dL Creatinine 1.0 (0.6-1.0) mg/dL Est Cr Clr Drug Dosing 70.34 mL/min Estimated GFR (MDRD) 58.7 ml/min Glucose 85 (74-106) mg/dL Lactic Acid 1.7 (0.4-2.0) mmol/L Calcium 8.0 L (8.5-10.1) mg/dL Magnesium 2.0 (1.8-2.4) mg/dL Total Bilirubin (0.2-1.0) mg/dL AST (15-37) IU/L ALT (14-63) IU/L Alkaline Phosphatase (46-116) U/L Troponin I (0.000-0.056) ng/mL Total Protein (6.4-8.2) g/dL Albumin (3.4-5.0) g/dL Globulin (2.6-4.0) g/dL Albumin/Globulin Ratio (0.9-1.6) Result Diagrams: 07/11/21 05:21 07/11/21 05:21 Sepsis Event Note - Evaluation Sepsis Screening Result: No Definite Risk - Focused Exam Vital Signs: Vital Signs Temp Pulse Resp BP Pulse Ox 07/11/21 04:31 98.4 F 89 20 99/54 L 92 L 07/10/21 23:22 98.4 F 90 19 126/60 96 - Problem List & Annotations (1) DVT of upper extremity (deep vein thrombosis) SNOMED Code(s): 938019655 Code(s): I82.629 - ACUTE EMBOLISM AND THROMBOSIS OF DEEP VN UNSP UP EXTREM Status: Acute Current Visit: Yes Qualifiers: Affected thrombotic vein of extremity: axillary Chronicity: acute Laterality: left Qualified Code(s): I82.A12 - Acute embolism and thrombosis of left axillary vein (2) COVID-19 SNOMED Code(s): 355995909 Code(s): U07.1 - COVID-19 Status: Acute Current Visit: Yes (3) Dehydration SNOMED Code(s): 94665026 Code(s): E86.0 - DEHYDRATION Status: Acute Current Visit: Yes (4) Hypokalemia SNOMED Code(s): 17465685 Code(s): E87.6 - HYPOKALEMIA Status: Acute Current Visit: Yes (5) Nausea & vomiting SNOMED Code(s): 85722658 Code(s): R11.2 - NAUSEA WITH VOMITING, UNSPECIFIED Status: Acute Current Visit: Yes (6) ADD (attention deficit disorder) SNOMED Code(s): 47940111 Code(s): F98.8 - OTH BEHAV/EMOTN DISORD W ONSET USLY OCCUR IN CHLDHD AND ADOL Status: Chronic Current Visit: Yes - Problem List Review Problem List Initiated/Reviewed/Updated: Yes - My Orders Last 24 Hours: My Active Orders 07/10/21 Lunch Regular Diet [DIET] 07/10/21 13:05 Oxygen Therapy [RC] PRN Up With Assistance [RC] ASDIRECTED VTE/DVT Education [RC] PER UNIT ROUTINE Vital Signs [RC] Q4H Acetaminophen [TylenoL] 650 mg PO Q4H PRN Albuterol/Ipratropium [Combivent Respimat] See Dose Instructions INH Q4HRRT PRN Ondansetron [Zofran] 4 mg IVPUSH Q4H PRN Sodium Chloride 0.9% [Saline Flush] 2.5 ml FLUSH ASDIRECTED PRN Saline Lock Insert [OM.PC] Routine Resuscitation Status Routine 07/10/21 13:06 Intake and Output [RC] Q12H 07/10/21 13:08 RT Post Treatment Assessment [RC] Click to Edit RT Pre-Treatment Assessment [RC] Click to Edit Codeine/guaiFENesin [Robitussin AC] 5 ml PO Q4H PRN 07/10/21 13:09 Benzonatate [Tessalon Perles] 200 mg PO Q8H PRN 07/10/21 13:10 Telemetry Monitoring [Cardiac Monitoring] [RC] Q8H 07/10/21 13:17 Neurovascular Check [RC] Q4H 07/10/21 13:18 Morphine 3 mg IVPUSH Q2H PRN oxyCODONE 5 mg PO Q4H PRN 07/10/21 13:20 Elevate Extremity [RC] ASDIRECTED 07/10/21 15:05 Promethazine [Phenergan] 25 mg IM Q4H PRN 07/10/21 16:09 Patient Status [ADT] Stat 07/10/21 23:00 Enoxaparin [Lovenox] 120 mg SUBCUT Q12H 07/11/21 08:59 Communication Order [RC] PRN - Plan Plan:: This 50-year-old female admitted with left upper extremity DVT and COVID-19 infection 1. Acute left upper extremity DVT Continue Lovenox 120 mg every 12 SQ Consider transitioning to Eliquis when stable and able to tolerate oral well enough Morphine as needed pain -CMS checks every 4 hours -Elevate arm as much as possible Interventional radiology consulted via telephone in ER they recommended no further treatments at this time besides anticoagulation 2. COVID-19 infection -Currently not hypoxic -We will continue supportive care -Combivent as needed -Zofran as needed nausea -Oxygen as needed to keep sats greater than 92% notify MD if oxygen is needed -Robitussin with codeine along with Tessalon Perles as needed cough -Encourage I-S and proning - Nausea doesn't improve with Zofran, will trial Phenergan. 3. Hypokalemia - improved today 4. ADHD -Continue home medications 5. VTach - 15 beats of Vtach overnight, patient asymptomatic - EKG SR, no further PVCs since - Check troponin - Obtain ECHO GI prophylaxis Protonix CODE STATUS: DNR/DNI confirmed with patient, at bedside during this conversation Dispo: 2 days pending improvement.
[2021-07-11] MEDS: oxyCODONE 5 MG Tab PO PRN ×3 (09:34→19:03)
[2021-07-11] MEDS: Codeine/guaiFENesin 10-100 MG/5 ML Syrup 5 ML Cup PO PRN ×3 (09:34→22:40)
[2021-07-11] MEDS: Enoxaparin 150 MG/1 ML Syringe SUBCUT SCH ×2 (11:25→22:40)
[2021-07-11] MEDS: Pantoprazole 40 MG in Sodium Chloride 0.9% 10 ML IV SCH (13:12)
[2021-07-11] MEDS ORDERED: METHYLPHENIDATE HCL 10 MG PO PRN (13:15)
[2021-07-11] MEDS: Morphine 4 MG/ML Syringe IVPUSH PRN ×2 (16:08→22:41)
[2021-07-11] MEDS: Ondansetron 4 MG/2 ML SDV IVPUSH PRN (16:11)
[2021-07-12] MEDS: oxyCODONE 5 MG Tab PO PRN ×4 (00:03→20:52)
[2021-07-12] MEDS: Morphine 4 MG/ML Syringe IVPUSH PRN ×3 (03:09→17:50)
[2021-07-12] MEDS: Acetaminophen 325 MG Tab PO PRN ×2 (03:18→09:09)
[2021-07-12 07:28] LABS: CARBON DIOXIDE,CO2 22.2 mmol/L (21.0-32.0); POTASSIUM,K 3.7 mmol/L (3.5-5.1)
[2021-07-12] MEDS: cefTRIAXone 1 GM in Premix Bag 1 BAG IV SCH (09:08)
[2021-07-12] MEDS: Codeine/guaiFENesin 10-100 MG/5 ML Syrup 5 ML Cup PO PRN ×3 (09:11→20:52)
--- NOTE | 2021-07-12 10:27 | PCM.PN ---
- General Info Date of Service: 07/12/21 Admission Dx/Problem (Free Text): Admission Diagnosis/Problem Admission Diagnosis/Problem DVT, Deep venous thrombosis of upper extremity Subjective Update: Continues to have nausea intermittently is tolerating small amount of regular diet. Reports nausea is worse when she is ambulating. Pain noted to left arm mildly improving but continues and worse with up. Denies any chest pain or shortness of breath. No ectopy or arrhythmias noted on telemetry overnight. Mild fever this morning but overall feeling somewhat improved. Functional Status: Reports: Pain Controlled (Oxycodone is helping with left arm pain), Tolerating Diet, Ambulating, Urinating - Review of Systems General: Reports: Fever, Fatigue, Malaise HEENT: Reports: Headaches. Denies: Sore Throat, Visual Changes Pulmonary: Reports: Shortness of Breath (Mild but steadily improving) Cardiovascular: Reports: No Symptoms. Denies: Chest Pain Gastrointestinal: Reports: No Symptoms. Denies: Abdominal Pain, Nausea, Vomiting Genitourinary: Reports: No Symptoms. Denies: Dysuria Musculoskeletal: Reports: Arm Pain (Left arm) Skin: Reports: No Symptoms Neurological: Reports: No Symptoms Psychiatric: Reports: No Symptoms - Patient Data Vitals - Most Recent: Last Vital Signs Temp 99.1 F 07/12/21 09:09 Pulse 86 07/12/21 08:00 Resp 16 07/12/21 08:00 BP 116/63 07/12/21 08:00 Pulse Ox 91 L 07/12/21 08:00 Weight - Most Recent: 106.849 kg I&O - Last 24 Hours: Intake & Output 07/11/21 07/12/21 07/12/21 22:59 06:59 14:59 Intake Total 820 950 Output Total 350 Balance 470 950 Lab Results Last 24 Hours: Laboratory Results - last 24 hr 07/11/21 07/11/21 07/12/21 Range/Units 05:21 16:00 05:54 WBC 7.37 (4.0-11.0) K/uL RBC 4.11 L (4.30-5.90) M/uL Hgb 11.3 L (12.0-16.0) g/dL Hct 34.5 L (36.0-46.0) % MCV 83.9 (80.0-98.0) fL MCH 27.5 (27.0-32.0) pg MCHC 32.8 (31.0-37.0) g/dL RDW Std Deviation 44.2 (28.0-62.0) fl RDW Coeff of Pooja 15 (11.0-15.0) % Plt Count 146 L (150-400) K/uL MPV 11.80 (7.40-12.00) fL Neut % (Auto) 61.3 (48.0-80.0) % Lymph % (Auto) 24.7 (16.0-40.0) % [place] % (Auto) 12.8 (0.0-15.0) % Eos % (Auto) 1.1 (0.0-7.0) % Baso % (Auto) 0.1 (0.0-1.5) % Neut # (Auto) 4.5 (1.4-5.7) K/uL Lymph # (Auto) 1.8 (0.6-2.4) K/uL [place] # (Auto) 0.9 H (0.0-0.8) K/uL Eos # (Auto) 0.1 (0.0-0.7) K/uL Baso # (Auto) 0.0 (0.0-0.1) K/uL Nucleated RBC % 0.0 /100WBC Nucleated RBCs # 0 K/uL Sodium (136-145) mmol/L Potassium (3.5-5.1) mmol/L Chloride (98-107) mmol/L Carbon Dioxide (21.0-32.0) mmol/L BUN (7.0-18.0) mg/dL Creatinine (0.6-1.0) mg/dL Est Cr Clr Drug Dosing mL/min Estimated GFR (MDRD) ml/min Glucose (74-106) mg/dL Calcium (8.5-10.1) mg/dL Magnesium (1.8-2.4) mg/dL Troponin I < 0.050 (0.000-0.056) ng/mL Urine Color DARK YELLOW Urine Appearance SLT CLOUDY Urine pH 6.0 (5.0-8.0) Ur Specific [place] >= 1.030 (1.001-1.035) Urine Protein 30 H (NEGATIVE) mg/dL Urine Glucose (UA) NEGATIVE (NEGATIVE) mg/dL Urine Ketones NEGATIVE (NEGATIVE) mg/dL Urine Occult Blood TRACE-INTACT H (NEGATIVE) Urine Nitrite NEGATIVE (NEGATIVE) Urine Bilirubin SMALL H (NEGATIVE) Urine Urobilinogen 0.2 (<2.0) EU/dL Ur Leukocyte Esterase SMALL H (NEGATIVE) Urine RBC 1-3 (0-2/HPF) Urine WBC 15-20 (0-5/HPF) Ur Epithelial Cells MODERATE (NONE-FEW) Amorphous Sediment LIGHT (NEGATIVE) Urine Bacteria 1+ H (NEGATIVE) Urine Mucus MODERATE (NONE-MOD) 07/12/21 Range/Units 05:54 WBC (4.0-11.0) K/uL RBC (4.30-5.90) M/uL Hgb (12.0-16.0) g/dL Hct (36.0-46.0) % MCV (80.0-98.0) fL MCH (27.0-32.0) pg MCHC (31.0-37.0) g/dL RDW Std Deviation (28.0-62.0) fl RDW Coeff of Pooja (11.0-15.0) % Plt Count (150-400) K/uL MPV (7.40-12.00) fL Neut % (Auto) (48.0-80.0) % Lymph % (Auto) (16.0-40.0) % [place] % (Auto) (0.0-15.0) % Eos % (Auto) (0.0-7.0) % Baso % (Auto) (0.0-1.5) % Neut # (Auto) (1.4-5.7) K/uL Lymph # (Auto) (0.6-2.4) K/uL [place] # (Auto) (0.0-0.8) K/uL Eos # (Auto) (0.0-0.7) K/uL Baso # (Auto) (0.0-0.1) K/uL Nucleated RBC % /100WBC Nucleated RBCs # K/uL Sodium 136 (136-145) mmol/L Potassium 3.7 (3.5-5.1) mmol/L Chloride 103 (98-107) mmol/L Carbon Dioxide 22.2 (21.0-32.0) mmol/L BUN 10 (7.0-18.0) mg/dL Creatinine 1.1 H (0.6-1.0) mg/dL Est Cr Clr Drug Dosing 63.94 mL/min Estimated GFR (MDRD) 52.6 ml/min Glucose 78 (74-106) mg/dL Calcium 7.5 L (8.5-10.1) mg/dL Magnesium 1.9 (1.8-2.4) mg/dL Troponin I (0.000-0.056) ng/mL Urine Color Urine Appearance Urine pH (5.0-8.0) Ur Specific [place] (1.001-1.035) Urine Protein (NEGATIVE) mg/dL Urine Glucose (UA) (NEGATIVE) mg/dL Urine Ketones (NEGATIVE) mg/dL Urine Occult Blood (NEGATIVE) Urine Nitrite (NEGATIVE) Urine Bilirubin (NEGATIVE) Urine Urobilinogen (<2.0) EU/dL Ur Leukocyte Esterase (NEGATIVE) Urine RBC (0-2/HPF) Urine WBC (0-5/HPF) Ur Epithelial Cells (NONE-FEW) Amorphous Sediment (NEGATIVE) Urine Bacteria (NEGATIVE) Urine Mucus (NONE-MOD) Med Orders - Current: Current Medications Acetaminophen (Acetaminophen 325 Mg Tab) 650 mg PO Q4H PRN PRN Reason: Pain (Mild 1-3)/fever Last Admin: 07/12/21 09:09 Dose: 650 mg Documented by: Albuterol/Ipratropium (Albuterol/Ipratropium 4 Gm Inhalation [place]) 0 gm INH Q4HRRT PRN PRN Reason: Dyspnea Last Admin: 07/12/21 00:03 Dose: 2 puff Documented by: Benzonatate (Benzonatate 100 Mg Cap) 200 mg PO Q8H PRN PRN Reason: Cough Enoxaparin Sodium (Enoxaparin 150 Mg/1 Ml Syringe) 120 mg SUBCUT Q12H [facility] Last Admin: 07/11/21 22:40 Dose: 120 mg Documented by: Guaifenesin/Codeine Phosphate (Codeine/Guaifenesin 10-100 Mg/5 Ml Syrup 5 Ml Cup) 5 ml PO Q4H PRN PRN Reason: Cough Last Admin: 07/12/21 09:11 Dose: 5 ml Documented by: Pantoprazole Sodium 40 mg/ (Sodium Chloride) 10 mls @ 300 mls/hr IV Q24H [facility] Last Admin: 07/11/21 13:12 Dose: 300 mls/hr Documented by: Ceftriaxone Sodium/Dextrose 1 (gm/ Premix) 50 mls @ 100 mls/hr IV Q24H [facility] Last Admin: 07/12/21 09:08 Dose: 100 mls/hr Documented by: Morphine Sulfate (Morphine 4 Mg/Ml Syringe) 3 mg IVPUSH Q2H PRN PRN Reason: Pain Last Admin: 07/12/21 09:10 Dose: 3 mg Documented by: Ondansetron HCl (Ondansetron 4 Mg/2 Ml Sdv) 4 mg IVPUSH Q4H PRN PRN Reason: Nausea Last Admin: 07/11/21 16:11 Dose: 4 mg Documented by: Oxycodone HCl (Oxycodone 5 Mg Tab) 5 mg PO Q4H PRN PRN Reason: Pain Last Admin: 07/12/21 04:24 Dose: 5 mg Documented by: Methylphenidate Hcl [Methylphenidate Hcl ] 10 Mg Tablet 1 each PO DAILY PRN PRN Reason: ADHD Promethazine HCl (Promethazine 25 Mg/Ml Sdv) 25 mg IM Q4H PRN PRN Reason: Nausea Last Admin: 07/10/21 15:45 Dose: 25 mg Documented by: Sodium Chloride (Sodium Chloride 0.9% 2.5 Ml Syringe) 2.5 ml FLUSH ASDIRECTED PRN PRN Reason: Keep Vein Open Discontinued Medications Enoxaparin Sodium (Enoxaparin 100 Mg/1 Ml Syringe) 115 mg SUBCUT ONETIME ONE Stop: 07/10/21 11:26 Last Admin: 07/10/21 11:33 Dose: Not Given Documented by: Enoxaparin Sodium (Enoxaparin 100 Mg/1 Ml Syringe) 100 mg SUBCUT ONETIME ONE Stop: 07/10/21 11:31 Last Admin: 07/10/21 13:10 Dose: 100 mg Documented by: Sodium Chloride (Normal Saline) 1,000 mls @ 999 mls/hr IV STAT ONE Stop: 07/10/21 11:13 Last Admin: 07/10/21 10:18 Dose: 999 mls/hr Documented by: Potassium Chloride/Sodium Chloride (Normal Saline With 40 Meq Kcl) 1,000 mls @ 125 mls/hr IV ONETIME ONE Stop: 07/10/21 23:13 Last Admin: 07/10/21 15:47 Dose: 125 mls/hr Documented by: Lorazepam (Lorazepam 2 Mg/Ml Sdv) 0.5 mg IVPUSH ONETIME ONE Stop: 07/10/21 10:14 Last Admin: 07/10/21 10:18 Dose: 0.5 mg Documented by: Morphine Sulfate (Morphine 4 Mg/Ml Syringe) 4 mg IVPUSH ONETIME ONE Stop: 07/10/21 12:45 Last Admin: 07/10/21 13:10 Dose: 4 mg Documented by: Ondansetron HCl (Ondansetron 4 Mg/2 Ml Sdv) 4 mg IVPUSH ONETIME ONE Stop: 07/10/21 10:14 Last Admin: 07/10/21 10:18 Dose: 4 mg Documented by: Ondansetron HCl (Ondansetron 4 Mg/2 Ml Sdv) 4 mg IVPUSH ONETIME ONE Stop: 07/10/21 12:45 Last Admin: 07/10/21 13:10 Dose: 4 mg Documented by: - Exam Quality Assessment: DVT Prophylaxis. No: Supplemental Oxygen General: Alert, Oriented, Cooperative, No Acute Distress Lungs: Clear to Auscultation, Normal Respiratory Effort Cardiovascular: Regular Rate, Regular Rhythm GI/Abdominal Exam: Normal Bowel Sounds, Soft, Non-Tender Back Exam: Normal Inspection, Full Range of Motion Extremities: Normal Inspection, Normal Range of Motion, Non-Tender, No Pedal Edema, Normal Capillary Refill, Arm Pain (Left arm), Limited Range of Motion (Left arm due to pain), Other (Arm is warm to touch sensation intact pulses +2 bilaterally.) Peripheral Pulses: 2+: Radial (R) Skin: Warm, Dry Neurological: No New Focal Deficit Psy/Mental Status: Alert, Normal Affect, Normal Mood - Patient Data Lab Results Last 24 hrs: Laboratory Results - last 24 hr 07/11/21 07/11/21 07/12/21 Range/Units 05:21 16:00 05:54 WBC 7.37 (4.0-11.0) K/uL RBC 4.11 L (4.30-5.90) M/uL Hgb 11.3 L (12.0-16.0) g/dL Hct 34.5 L (36.0-46.0) % MCV 83.9 (80.0-98.0) fL MCH 27.5 (27.0-32.0) pg MCHC 32.8 (31.0-37.0) g/dL RDW Std Deviation 44.2 (28.0-62.0) fl RDW Coeff of Pooja 15 (11.0-15.0) % Plt Count 146 L (150-400) K/uL MPV 11.80 (7.40-12.00) fL Neut % (Auto) 61.3 (48.0-80.0) % Lymph % (Auto) 24.7 (16.0-40.0) % [place] % (Auto) 12.8 (0.0-15.0) % Eos % (Auto) 1.1 (0.0-7.0) % Baso % (Auto) 0.1 (0.0-1.5) % Neut # (Auto) 4.5 (1.4-5.7) K/uL Lymph # (Auto) 1.8 (0.6-2.4) K/uL [place] # (Auto) 0.9 H (0.0-0.8) K/uL Eos # (Auto) 0.1 (0.0-0.7) K/uL Baso # (Auto) 0.0 (0.0-0.1) K/uL Nucleated RBC % 0.0 /100WBC Nucleated RBCs # 0 K/uL Sodium (136-145) mmol/L Potassium (3.5-5.1) mmol/L Chloride (98-107) mmol/L Carbon Dioxide (21.0-32.0) mmol/L BUN (7.0-18.0) mg/dL Creatinine (0.6-1.0) mg/dL Est Cr Clr Drug Dosing mL/min Estimated GFR (MDRD) ml/min Glucose (74-106) mg/dL Calcium (8.5-10.1) mg/dL Magnesium (1.8-2.4) mg/dL Troponin I < 0.050 (0.000-0.056) ng/mL Urine Color DARK YELLOW Urine Appearance SLT CLOUDY Urine pH 6.0 (5.0-8.0) Ur Specific [place] >= 1.030 (1.001-1.035) Urine Protein 30 H (NEGATIVE) mg/dL Urine Glucose (UA) NEGATIVE (NEGATIVE) mg/dL Urine Ketones NEGATIVE (NEGATIVE) mg/dL Urine Occult Blood TRACE-INTACT H (NEGATIVE) Urine Nitrite NEGATIVE (NEGATIVE) Urine Bilirubin SMALL H (NEGATIVE) Urine Urobilinogen 0.2 (<2.0) EU/dL Ur Leukocyte Esterase SMALL H (NEGATIVE) Urine RBC 1-3 (0-2/HPF) Urine WBC 15-20 (0-5/HPF) Ur Epithelial Cells MODERATE (NONE-FEW) Amorphous Sediment LIGHT (NEGATIVE) Urine Bacteria 1+ H (NEGATIVE) Urine Mucus MODERATE (NONE-MOD) 07/12/21 Range/Units 05:54 WBC (4.0-11.0) K/uL RBC (4.30-5.90) M/uL Hgb (12.0-16.0) g/dL Hct (36.0-46.0) % MCV (80.0-98.0) fL MCH (27.0-32.0) pg MCHC (31.0-37.0) g/dL RDW Std Deviation (28.0-62.0) fl RDW Coeff of Pooja (11.0-15.0) % Plt Count (150-400) K/uL MPV (7.40-12.00) fL Neut % (Auto) (48.0-80.0) % Lymph % (Auto) (16.0-40.0) % [place] % (Auto) (0.0-15.0) % Eos % (Auto) (0.0-7.0) % Baso % (Auto) (0.0-1.5) % Neut # (Auto) (1.4-5.7) K/uL Lymph # (Auto) (0.6-2.4) K/uL [place] # (Auto) (0.0-0.8) K/uL Eos # (Auto) (0.0-0.7) K/uL Baso # (Auto) (0.0-0.1) K/uL Nucleated RBC % /100WBC Nucleated RBCs # K/uL Sodium 136 (136-145) mmol/L Potassium 3.7 (3.5-5.1) mmol/L Chloride 103 (98-107) mmol/L Carbon Dioxide 22.2 (21.0-32.0) mmol/L BUN 10 (7.0-18.0) mg/dL Creatinine 1.1 H (0.6-1.0) mg/dL Est Cr Clr Drug Dosing 63.94 mL/min Estimated GFR (MDRD) 52.6 ml/min Glucose 78 (74-106) mg/dL Calcium 7.5 L (8.5-10.1) mg/dL Magnesium 1.9 (1.8-2.4) mg/dL Troponin I (0.000-0.056) ng/mL Urine Color Urine Appearance Urine pH (5.0-8.0) Ur Specific [place] (1.001-1.035) Urine Protein (NEGATIVE) mg/dL Urine Glucose (UA) (NEGATIVE) mg/dL Urine Ketones (NEGATIVE) mg/dL Urine Occult Blood (NEGATIVE) Urine Nitrite (NEGATIVE) Urine Bilirubin (NEGATIVE) Urine Urobilinogen (<2.0) EU/dL Ur Leukocyte Esterase (NEGATIVE) Urine RBC (0-2/HPF) Urine WBC (0-5/HPF) Ur Epithelial Cells (NONE-FEW) Amorphous Sediment (NEGATIVE) Urine Bacteria (NEGATIVE) Urine Mucus (NONE-MOD) Result Diagrams: 07/12/21 05:54 07/12/21 05:54 Sepsis Event Note - Evaluation Sepsis Screening Result: No Definite Risk - Focused Exam Vital Signs: Vital Signs Temp Temp Pulse Resp BP Pulse Ox 07/12/21 09:09 99.1 F 07/12/21 08:00 99.1 F 86 16 116/63 91 L 07/12/21 03:18 101.6 F H 07/12/21 03:16 101.6 F H 97 20 100/48 L 95 07/11/21 22:54 99.2 F 87 17 115/60 94 L - Problem List & Annotations (1) DVT of upper extremity (deep vein thrombosis) SNOMED Code(s): 725175819 Code(s): I82.629 - ACUTE EMBOLISM AND THROMBOSIS OF DEEP VN UNSP UP EXTREM Status: Acute Current Visit: Yes Qualifiers: Affected thrombotic vein of extremity: axillary Chronicity: acute Laterality: left Qualified Code(s): I82.A12 - Acute embolism and thrombosis of left axillary vein (2) COVID-19 SNOMED Code(s): 776439511 Code(s): U07.1 - COVID-19 Status: Acute Current Visit: Yes (3) Dehydration SNOMED Code(s): 69033552 Code(s): E86.0 - DEHYDRATION Status: Acute Current Visit: Yes (4) Hypokalemia SNOMED Code(s): 66358053 Code(s): E87.6 - HYPOKALEMIA Status: Acute Current Visit: Yes (5) Nausea & vomiting SNOMED Code(s): 85817355 Code(s): R11.2 - NAUSEA WITH VOMITING, UNSPECIFIED Status: Acute Current Visit: Yes (6) ADD (attention deficit disorder) SNOMED Code(s): 32178618 Code(s): F98.8 - OTH BEHAV/EMOTN DISORD W ONSET USLY OCCUR IN CHLDHD AND ADOL Status: Chronic Current Visit: Yes - Problem List Review Problem List Initiated/Reviewed/Updated: Yes - My Orders Last 24 Hours: My Active Orders 07/11/21 10:57 Echo Comp wo Cont [US] Urgent 07/11/21 13:15 Patient's Own Medication [Ptom] 1 each PO DAILY PRN 07/12/21 08:15 cefTRIAXone [Rocephin in Dextrose,Iso-Osm 1 GM/50 ML] 1 gm Premix Bag 1 bag IV Q24H 07/13/21 05:11 BASIC METABOLIC PANEL,BMP [CHEM] AM CBC WITH AUTO DIFF [HEME] AM MAGNESIUM [CHEM] AM 07/14/21 05:11 BASIC METABOLIC PANEL,BMP [CHEM] AM CBC WITH AUTO DIFF [HEME] AM MAGNESIUM [CHEM] AM - Plan Plan:: This 50-year-old female admitted with left upper extremity DVT and COVID-19 infection 1. Acute left upper extremity DVT Continue Lovenox 120 mg every 12 SQ Transition to Eliquis 10 milligrams p.o. twice daily x7 days then decrease to 5 mg twice daily for approximately 3 to 6 months. Morphine as needed pain -CMS checks every 4 hours -Elevate arm as much as possible 2. COVID-19 infection -Slow improvement nausea mildly improved -Continues to not be hypoxic -We will continue supportive care -Combivent as needed -Zofran/Phenergan as needed nausea -Oxygen as needed to keep sats greater than 92% notify MD if oxygen is needed -Robitussin with codeine along with Tessalon Perles as needed cough -Encourage I-S and proning 3. ADHD -Continue home medications 4. VTach -No further arrhythmias noted on telemetry since one incident on 07/10/2021 - 15 beats of Vtach overnight, patient asymptomatic - EKG SR, no further PVCs since -Troponin negative -Echo pending GI prophylaxis Protonix CODE STATUS: DNR/DNI confirmed with patient, at bedside during this conversation Dispo: Possible home in a.m.
[2021-07-12] MEDS: Enoxaparin 150 MG/1 ML Syringe SUBCUT SCH ×2 (12:06→23:37)
[2021-07-12] MEDS: Pantoprazole 40 MG in Sodium Chloride 0.9% 10 ML IV SCH (14:38)
[2021-07-12] MEDS: Benzonatate 100 MG Cap PO PRN (17:52)
[2021-07-13] MEDS: Codeine/guaiFENesin 10-100 MG/5 ML Syrup 5 ML Cup PO PRN ×3 (01:14→22:34)
[2021-07-13] MEDS: oxyCODONE 5 MG Tab PO PRN ×4 (01:15→22:34)
[2021-07-13] MEDS: Benzonatate 100 MG Cap PO PRN ×2 (05:06→16:26)
[2021-07-13 06:04] LABS: CARBON DIOXIDE,CO2 24.6 mmol/L (21.0-32.0); POTASSIUM,K 3.5 mmol/L (3.5-5.1)
[2021-07-13] MEDS: cefTRIAXone 1 GM in Premix Bag 1 BAG IV SCH (08:25)
[2021-07-13] MEDS: Ondansetron 4 MG/2 ML SDV IVPUSH PRN (08:32)
--- NOTE | 2021-07-13 09:38 | PCM.PN ---
- General Info Date of Service: 07/13/21 Admission Dx/Problem (Free Text): Admission Diagnosis/Problem Admission Diagnosis/Problem DVT, Deep venous thrombosis of upper extremity Subjective Update: Continues to feel weak today. Denies any fevers or chills. Reports left arm pain is worse with ambulation. Reports she is coughing up some mucus and would like to help this to be cleared out. Reports mild pleuritic pain with deep breathing. Feels unsafe going home at the time she has known to help her at home. Functional Status: Reports: Pain Controlled, Ambulating, Urinating. Denies: Tolerating Diet (Poor appetite continues) - Review of Systems General: Reports: Weakness, Fatigue, Malaise HEENT: Reports: Other (Postnasal drip with coughing and loose sputum). Denies: Sinus Congestion, Sore Throat Pulmonary: Reports: Shortness of Breath (With movement), Pleuritic Chest Pain, Cough, Sputum (Clear white) Gastrointestinal: Reports: Decreased Appetite. Denies: Abdominal Pain, Nausea, Vomiting Genitourinary: Reports: No Symptoms. Denies: Dysuria, Frequency, Burning Musculoskeletal: Reports: Arm Pain (L arm) Skin: Reports: No Symptoms Neurological: Reports: No Symptoms Psychiatric: Reports: No Symptoms - Patient Data Vitals - Most Recent: Last Vital Signs Temp 97.8 F 07/13/21 07:30 Pulse 72 07/13/21 07:30 Resp 22 H 07/13/21 07:30 BP 103/50 L 07/13/21 07:30 Pulse Ox 90 L 07/13/21 07:30 Weight - Most Recent: 106.849 kg I&O - Last 24 Hours: Intake & Output 07/12/21 07/13/21 07/13/21 22:59 06:59 14:59 Intake Total 340 650 Output Total 350 800 Balance -10 -150 Lab Results Last 24 Hours: Laboratory Results - last 24 hr 07/13/21 07/13/21 Range/Units 05:38 05:38 WBC 6.69 (4.0-11.0) K/uL RBC 4.24 L (4.30-5.90) M/uL Hgb 11.5 L (12.0-16.0) g/dL Hct 34.9 L (36.0-46.0) % MCV 82.3 (80.0-98.0) fL MCH 27.1 (27.0-32.0) pg MCHC 33.0 (31.0-37.0) g/dL RDW Std Deviation 42.1 (28.0-62.0) fl RDW Coeff of Pooja 14 (11.0-15.0) % Plt Count 168 (150-400) K/uL MPV 11.20 (7.40-12.00) fL Neut % (Auto) 57.1 (48.0-80.0) % Lymph % (Auto) 29.9 (16.0-40.0) % [place] % (Auto) 11.7 (0.0-15.0) % Eos % (Auto) 1.2 (0.0-7.0) % Baso % (Auto) 0.1 (0.0-1.5) % Neut # (Auto) 3.8 (1.4-5.7) K/uL Lymph # (Auto) 2.0 (0.6-2.4) K/uL [place] # (Auto) 0.8 (0.0-0.8) K/uL Eos # (Auto) 0.1 (0.0-0.7) K/uL Baso # (Auto) 0.0 (0.0-0.1) K/uL Nucleated RBC % 0.0 /100WBC Nucleated RBCs # 0 K/uL Sodium 137 (136-145) mmol/L Potassium 3.5 (3.5-5.1) mmol/L Chloride 102 (98-107) mmol/L Carbon Dioxide 24.6 (21.0-32.0) mmol/L BUN 6 L (7.0-18.0) mg/dL Creatinine 1.0 (0.6-1.0) mg/dL Est Cr Clr Drug Dosing 70.34 mL/min Estimated GFR (MDRD) 58.7 ml/min Glucose 83 (74-106) mg/dL Calcium 8.1 L (8.5-10.1) mg/dL Magnesium 1.9 (1.8-2.4) mg/dL Med Orders - Current: Current Medications Acetaminophen (Acetaminophen 325 Mg Tab) 650 mg PO Q4H PRN PRN Reason: Pain (Mild 1-3)/fever Last Admin: 07/12/21 09:09 Dose: 650 mg Documented by: Albuterol/Ipratropium (Albuterol/Ipratropium 4 Gm Inhalation [place]) 0 gm INH Q4HRRT PRN PRN Reason: Dyspnea Last Admin: 07/12/21 00:03 Dose: 2 puff Documented by: Benzonatate (Benzonatate 100 Mg Cap) 200 mg PO Q8H PRN PRN Reason: Cough Last Admin: 07/13/21 05:06 Dose: 200 mg Documented by: Enoxaparin Sodium (Enoxaparin 150 Mg/1 Ml Syringe) 120 mg SUBCUT Q12H VALENTIN Last Admin: 07/12/21 23:37 Dose: 120 mg Documented by: Guaifenesin (Guaifenesin 600 Mg Tab.Er) 600 mg PO BID VALENTIN Guaifenesin/Codeine Phosphate (Codeine/Guaifenesin 10-100 Mg/5 Ml Syrup 5 Ml Cup) 5 ml PO Q4H PRN PRN Reason: Cough Last Admin: 07/13/21 01:14 Dose: 5 ml Documented by: Pantoprazole Sodium 40 mg/ (Sodium Chloride) 10 mls @ 300 mls/hr IV Q24H VALENTIN Last Admin: 07/12/21 14:38 Dose: 300 mls/hr Documented by: Ceftriaxone Sodium/Dextrose 1 (gm/ Premix) 50 mls @ 100 mls/hr IV Q24H VALENTIN Last Admin: 07/13/21 08:25 Dose: 100 mls/hr Documented by: Morphine Sulfate (Morphine 4 Mg/Ml Syringe) 3 mg IVPUSH Q2H PRN PRN Reason: Pain Last Admin: 07/12/21 17:50 Dose: 3 mg Documented by: Ondansetron HCl (Ondansetron 4 Mg/2 Ml Sdv) 4 mg IVPUSH Q4H PRN PRN Reason: Nausea Last Admin: 07/13/21 08:32 Dose: 4 mg Documented by: Oxycodone HCl (Oxycodone 5 Mg Tab) 5 mg PO Q4H PRN PRN Reason: Pain Last Admin: 07/13/21 05:25 Dose: 5 mg Documented by: Methylphenidate Hcl [Methylphenidate Hcl ] 10 Mg Tablet 1 each PO DAILY PRN PRN Reason: ADHD Promethazine HCl (Promethazine 25 Mg/Ml Sdv) 25 mg IM Q4H PRN PRN Reason: Nausea Last Admin: 07/10/21 15:45 Dose: 25 mg Documented by: Sodium Chloride (Sodium Chloride 0.9% 2.5 Ml Syringe) 2.5 ml FLUSH ASDIRECTED PRN PRN Reason: Keep Vein Open Discontinued Medications Enoxaparin Sodium (Enoxaparin 100 Mg/1 Ml Syringe) 115 mg SUBCUT ONETIME ONE Stop: 07/10/21 11:26 Last Admin: 07/10/21 11:33 Dose: Not Given Documented by: Enoxaparin Sodium (Enoxaparin 100 Mg/1 Ml Syringe) 100 mg SUBCUT ONETIME ONE Stop: 07/10/21 11:31 Last Admin: 07/10/21 13:10 Dose: 100 mg Documented by: Sodium Chloride (Normal Saline) 1,000 mls @ 999 mls/hr IV STAT ONE Stop: 07/10/21 11:13 Last Admin: 07/10/21 10:18 Dose: 999 mls/hr Documented by: Potassium Chloride/Sodium Chloride (Normal Saline With 40 Meq Kcl) 1,000 mls @ 125 mls/hr IV ONETIME ONE Stop: 07/10/21 23:13 Last Admin: 07/10/21 15:47 Dose: 125 mls/hr Documented by: Lorazepam (Lorazepam 2 Mg/Ml Sdv) 0.5 mg IVPUSH ONETIME ONE Stop: 07/10/21 10:14 Last Admin: 07/10/21 10:18 Dose: 0.5 mg Documented by: Morphine Sulfate (Morphine 4 Mg/Ml Syringe) 4 mg IVPUSH ONETIME ONE Stop: 07/10/21 12:45 Last Admin: 07/10/21 13:10 Dose: 4 mg Documented by: Ondansetron HCl (Ondansetron 4 Mg/2 Ml Sdv) 4 mg IVPUSH ONETIME ONE Stop: 07/10/21 10:14 Last Admin: 07/10/21 10:18 Dose: 4 mg Documented by: Ondansetron HCl (Ondansetron 4 Mg/2 Ml Sdv) 4 mg IVPUSH ONETIME ONE Stop: 07/10/21 12:45 Last Admin: 07/10/21 13:10 Dose: 4 mg Documented by: - Exam Quality Assessment: DVT Prophylaxis. No: Supplemental Oxygen General: Alert, Oriented, Cooperative, No Acute Distress Neck: Supple Lungs: Decreased Breath Sounds Cardiovascular: Regular Rate, Regular Rhythm GI/Abdominal Exam: Normal Bowel Sounds, Soft, Non-Tender Back Exam: Normal Inspection, Full Range of Motion Extremities: Arm Pain (Left arm swelling and pain pulses intact extremity is wa rm and pink pulses present CMS intact). No: Normal Range of Motion Peripheral Pulses: 2+: Radial (L) Wound/Incisions: Healing Well Neurological: No New Focal Deficit Psy/Mental Status: Alert, Normal Affect, Normal Mood - Patient Data Lab Results Last 24 hrs: Laboratory Results - last 24 hr 07/13/21 07/13/21 Range/Units 05:38 05:38 WBC 6.69 (4.0-11.0) K/uL RBC 4.24 L (4.30-5.90) M/uL Hgb 11.5 L (12.0-16.0) g/dL Hct 34.9 L (36.0-46.0) % MCV 82.3 (80.0-98.0) fL MCH 27.1 (27.0-32.0) pg MCHC 33.0 (31.0-37.0) g/dL RDW Std Deviation 42.1 (28.0-62.0) fl RDW Coeff of Pooja 14 (11.0-15.0) % Plt Count 168 (150-400) K/uL MPV 11.20 (7.40-12.00) fL Neut % (Auto) 57.1 (48.0-80.0) % Lymph % (Auto) 29.9 (16.0-40.0) % [place] % (Auto) 11.7 (0.0-15.0) % Eos % (Auto) 1.2 (0.0-7.0) % Baso % (Auto) 0.1 (0.0-1.5) % Neut # (Auto) 3.8 (1.4-5.7) K/uL Lymph # (Auto) 2.0 (0.6-2.4) K/uL [place] # (Auto) 0.8 (0.0-0.8) K/uL Eos # (Auto) 0.1 (0.0-0.7) K/uL Baso # (Auto) 0.0 (0.0-0.1) K/uL Nucleated RBC % 0.0 /100WBC Nucleated RBCs # 0 K/uL Sodium 137 (136-145) mmol/L Potassium 3.5 (3.5-5.1) mmol/L Chloride 102 (98-107) mmol/L Carbon Dioxide 24.6 (21.0-32.0) mmol/L BUN 6 L (7.0-18.0) mg/dL Creatinine 1.0 (0.6-1.0) mg/dL Est Cr Clr Drug Dosing 70.34 mL/min Estimated GFR (MDRD) 58.7 ml/min Glucose 83 (74-106) mg/dL Calcium 8.1 L (8.5-10.1) mg/dL Magnesium 1.9 (1.8-2.4) mg/dL Result Diagrams: 07/13/21 05:38 07/13/21 05:38 Sepsis Event Note - Evaluation Sepsis Screening Result: No Definite Risk - Focused Exam Vital Signs: Vital Signs Temp Pulse Resp BP Pulse Ox 07/13/21 07:30 97.8 F 72 22 H 103/50 L 90 L 07/13/21 05:09 75 17 117/62 94 L 07/12/21 23:41 98.8 F 87 17 107/55 L 92 L - Problem List & Annotations (1) DVT of upper extremity (deep vein thrombosis) SNOMED Code(s): 776804621 Code(s): I82.629 - ACUTE EMBOLISM AND THROMBOSIS OF DEEP VN UNSP UP EXTREM Status: Acute Current Visit: Yes Qualifiers: Affected thrombotic vein of extremity: axillary Chronicity: acute Late rality: left Qualified Code(s): I82.A12 - Acute embolism and thrombosis of left axillary vein (2) COVID-19 SNOMED Code(s): 028562949 Code(s): U07.1 - COVID-19 Status: Acute Current Visit: Yes (3) Dehydration SNOMED Code(s): 08401952 Code(s): E86.0 - DEHYDRATION Status: Acute Current Visit: Yes (4) Hypokalemia SNOMED Code(s): 10596681 Code(s): E87.6 - HYPOKALEMIA Status: Acute Current Visit: Yes (5) Nausea & vomiting SNOMED Code(s): 49539381 Code(s): R11.2 - NAUSEA WITH VOMITING, UNSPECIFIED Status: Acute Current Visit: Yes (6) ADD (attention deficit disorder) SNOMED Code(s): 73632548 Code(s): F98.8 - OTH BEHAV/EMOTN DISORD W ONSET USLY OCCUR IN CHLDHD AND ADOL Status: Chronic Current Visit: Yes (7) UTI (urinary tract infection) SNOMED Code(s): 17599067 Code(s): N39.0 - URINARY TRACT INFECTION, SITE NOT SPECIFIED Status: Acute Current Visit: Yes - Problem List Review Problem List Initiated/Reviewed/Updated: Yes - My Orders Last 24 Hours: My Active Orders 07/13/21 09:02 PT Evaluation and Treatment [CONS] Routine 07/13/21 09:15 guaiFENesin [Mucinex] 600 mg PO BID 07/14/21 05:11 BASIC METABOLIC PANEL,BMP [CHEM] AM CBC WITH AUTO DIFF [HEME] AM MAGNESIUM [CHEM] AM - Plan Plan:: This 50-year-old female admitted with left upper extremity DVT and COVID-19 infection 1. Acute left upper extremity DVT Continue Lovenox 120 mg every 12 SQ Transition to Eliquis 10 milligrams p.o. twice daily x7 days then decrease to 5 mg twice daily for approximately 3 to 6 months upon discharge Morphine/oxycodone as needed pain -CMS checks every 4 hours -Elevate arm as much as possible 2. COVID-19 infection -Slow improvement nausea mildly improved -Continues to not be hypoxic -We will continue supportive care -Combivent as needed -Zofran/Phenergan as needed nausea -Oxygen as needed to keep sats greater than 92% notify MD if oxygen is needed -Robitussin with codeine along with Tessalon Perles as needed cough -Encourage I-S and proning -Start Acapella she feels chest congestion 3. ADHD -Continue home medications 4. VTach -No further arrhythmias noted on telemetry since one incident on 07/10/2021 - 15 beats of Vtach overnight, patient asymptomatic - EKG SR, no further PVCs since -Troponin negative -Echo pending 5. UTI -Rocephin started yesterday -UC pending GI prophylaxis Protonix CODE STATUS: DNR/DNI confirmed with patient, at bedside during this conversation Dispo: Possible home in a.m.
[2021-07-13] MEDS: guaiFENesin 600 MG Tab.ER PO SCH ×2 (10:02→20:21)
[2021-07-13] MEDS: Enoxaparin 150 MG/1 ML Syringe SUBCUT SCH ×2 (11:42→22:35)
[2021-07-13] MEDS: Pantoprazole 40 MG in Sodium Chloride 0.9% 10 ML IV SCH (13:44)
[2021-07-13] MEDS: Promethazine 25 MG/ML SDV IM PRN (16:37)
[2021-07-14] MEDS: Benzonatate 100 MG Cap PO PRN (03:34)
[2021-07-14 06:04] LABS: BLOOD UREA NITROGEN,BUN 6 mg/dL (7.0-18.0); CARBON DIOXIDE,CO2 27.3 mmol/L (21.0-32.0); CHLORIDE,CL 102 mmol/L (98-107); GLUCOSE RANDOM 92 mg/dL (74-106); POTASSIUM,K 3.3 mmol/L (3.5-5.1); SODIUM,NA 137 mmol/L (136-145)
[2021-07-14] MEDS ORDERED: Potassium Chloride 20 MEQ Tab.ER PO ONE (08:15)
[2021-07-14] MEDS: guaiFENesin 600 MG Tab.ER PO SCH (08:34)
[2021-07-14] MEDS: cefTRIAXone 1 GM in Premix Bag 1 BAG IV SCH (08:35)
[2021-07-14 08:49] VITALS: BP 103/57; PULSE 76
--- NOTE | 2021-07-14 11:37 | PCM.DCSUM1 ---
Discharge Summary - Hospital Course Brief History: This 50-year-old female with past medical history of presented to the ER with complaints of left arm pain along with shortness of breath, chest pain, nausea, vomiting, diarrhea and generalized fatigue x2 weeks. She was initially diagnosed with COVID-19 on 06/28 she was treated with doxycycline and steroid. She came in to the ER on 06/29 and had a CTA of the chest along with chest x-ray she was diagnosed with pneumonia and azithromycin was added to doxycycline regimen. He has since completed her antibiotic regimen but continues to feel unwell. On 07/04/2021 she was evaluated in [place] ER with the similar symptoms along with increasing left arm pain. Her D-dimer was found to be elevated but they did not find location of possible DVT/PE. She had no additional scans of her body at this time. She continues to feel unwell continues to feel short of breath with generalized fatigue and malaise. She reports nearly continuous hacking cough that is nonproductive. Denies any chest pain. Denies any abdominal pain but does report nausea and inability to eat or keep food down. She reports pain to left upper extremity with intermittent numbness and tingling and coolness. She denies any history of previous DVT/PE she is not on any hormone therapy and has had no recent travel. She denies any known bleeding or clotting disorders. She denies any tobacco use no recreational drug use and rare occasional alcohol use. In the ER no leukocytosis noted hemoglobin 13.6 platelet count 172,000. Potassium 3.2 BUN 25 creatinine 1.4 glucose 121 troponin negative. Chest x-ray reveals hyperinflation extensive interstitial thickening and superimposed pulmonary f ibrotic changes with likely mild pulmonary edema. EKG 86 normal sinus rhythm otherwise unchanged compared to prior EKG. In the ER she was treated with Lovenox 115 mg subcu x1. She was also given 1 L normal saline along with Zofran and Ativan. Left upper extremity ultrasound reveals acute DVT within the left subclavian axillary brachial cephalic and antecubital veins. The radial and ulnar veins are patent and negative for thrombus. In the ER provider did speak with interventional radiologist and Janee Gomez for recommendations on extensive clot at this time he recommended no further intervention besides anticoagulation. She will be admitted observation for acute left upper arm DVT. - Discharge Data Discharge Date: 07/14/21 Discharge Disposition: Home, Self-Care 01 Condition: Good - Referral to Home Health Primary Care Physician: Shelbi Zapata NP - Discharge Diagnosis/Problem(s) (1) DVT of upper extremity (deep vein thrombosis) SNOMED Code(s): 706172279 ICD Code: I82.629 - ACUTE EMBOLISM AND THROMBOSIS OF DEEP VN UNSP UP EXTREM Status: Acute Qualifiers: Affected thrombotic vein of extremity: axillary Chronicity: acute Laterality: left Qualified Code(s): I82.A12 - Acute embolism and thrombosis of left axillary vein (2) COVID-19 SNOMED Code(s): 922100987 ICD Code: U07.1 - COVID-19 Status: Acute (3) Dehydration SNOMED Code(s): 77008697 ICD Code: E86.0 - DEHYDRATION Status: Acute (4) Hypokalemia SNOMED Code(s): 75555134 ICD Code: E87.6 - HYPOKALEMIA Status: Acute (5) Nausea & vomiting SNOMED Code(s): 88326859 ICD Code: R11.2 - NAUSEA WITH VOMITING, UNSPECIFIED Status: Acute (6) ADD (attention deficit disorder) SNOMED Code(s): 71794063 ICD Code: F98.8 - OTH BEHAV/EMOTN DISORD W ONSET USLY OCCUR IN CHLDHD AND ADOL Status: Chronic (7) UTI (urinary tract infection) SNOMED Code(s): 10193211 ICD Code: N39.0 - URINARY TRACT INFECTION, SITE NOT SPECIFIED Status: Acute - Patient Summary/Data Consults: Consultations 07/13/21 09:02 PT Evaluation and Treatment [CONS] Routine Hospital Course: Admission diagnoses COVID-19 Left arm DVT Discharge diagnoses COVID-19 Left arm DVT UTI Deb was admitted secondary to acute left arm DVT and inability to tolerate o ral intake due to COVID-19 infection. Patient was admitted as she is unable to take oral anticoagulation. She was started on Lovenox 120 mg twice daily. On admission arm was noted to be cyanotic JENNIFER Avila, in [place] was contacted regarding possible TPA or retrieval of clot. He recommended strict anticoagulation at this time. Patient slowly improved and the ability to tolerate oral intake without nausea and vomiting. Patient remained off oxygen during her entire stay and was not treated with any regimen for COVID-19 respiratory failure. Patient was found to have UTI and treated with Rocephin x3 days on discharge urine culture revealed Enterococcus and Staphylococcus species KELLY pending. She will be treated with amoxicillin 500 mg twice daily for 2 more days to complete 5-day course. Patient will be discharged home on Eliquis 10 mg twice daily for the next 7 days and then dropping down to 5 mg twice daily. She was counseled that she will need to have therapy for at least 3 months due to provoked DVT which is likely secondary to COVID-19 but there is another factor that her father from sudden cardiac from a left ventricular blood clot. Patient may need genetic testing as an outpatient for clotting disorders once off of Lovenox. Patient will be given oxycodone 5 mg 1 tab every 6 hours as needed pain 30 tabs no refills. Left arm continues to be swollen but has good sensation warm and pink with good pulses. Patient informed she should continue with activities limited as pain allows. Patient to follow- up with PCP in 1 week. Patient quarantining. Has completed as she did not have respiratory illness and said her illness from Covid she has completed her 10- day quarantine. All questions and concerns addressed patient to be discharged home today she was informed to return to the ER clinic if concerns should arise sooner. - Patient Instructions Diet: Regular Diet as Tolerated Activity: Cough & Deep Breathe, No Strenuous Activities, Rest and Relax Today Showering/Bathing: May Shower Notify Provider of: Fever, Increased Pain, Swelling and Redness, Drainage, Nausea and/or Vomiting - Discharge Plan *PRESCRIPTION DRUG MONITORING PROGRAM REVIEWED*: Not Applicable Prescriptions/Med Rec: Amoxicillin 500 mg PO BID #4 tab Apixaban [Eliquis] 5 - 10 mg PO BID #70 tablet oxyCODONE 5 mg PO Q6H PRN #30 tablet PRN Reason: Pain Codeine/guaiFENesin [Robitussin AC] 5 ml PO Q4H PRN #120 ml PRN Reason: Cough Home Medications: Home Meds Methylphenidate HCl 10 mg PO ASDIRECTED 11/25/20 [History] Omeprazole 20 mg PO DAILY 11/25/20 [History] Ibuprofen 600 mg PO Q6HR PRN #30 tablet 06/29/21 [Rx] Albuterol/Ipratropium [Combivent Respimat] 2 puff INH Q4HR PRN inhaler 07/14/21 [Rx] Amoxicillin 500 mg PO BID #4 tab 07/14/21 [Rx] Apixaban [Eliquis] 5 - 10 mg PO BID #70 tablet 07/14/21 [Rx] Codeine/guaiFENesin [Robitussin AC] 5 ml PO Q4H PRN #120 ml 07/14/21 [Rx] oxyCODONE 5 mg PO Q6H PRN #30 tablet 07/14/21 [Rx] Oxygen Therapy Mode: Room Air Patient Handouts: COVID-19 Frequently Asked Questions, Amoxicillin capsules or tablets, Oxycodone tablets or capsules, Hypokalemia, 10 Things You Can Do to Manage Your COVID-19 Symptoms at Home - [facility] (05/18/2020), Guaifenesin oral solution and syrup, Urinary Tract Infection, Adult, Symptoms of Coronavirus - [facility] (01/09/2021), COVID-19: Quarantine vs. Isolation - [facility] (11/03/2020), Apixaban oral tablets, Deep Vein Thrombosis Referrals: Shelbi Zapata [employer] [Primary Care Provider] - 07/25/21 10:45 am - Discharge Summary/Plan Comment DC Time >30 min.: No Total # of Minutes for Discharge Time: 25 minutes - Patient Data Vitals - Most Recent: Last Vital Signs Temp 96.9 F 07/14/21 08:38 Pulse 76 07/14/21 08:38 Resp 16 07/14/21 08:38 BP 103/57 L 07/14/21 08:38 Pulse Ox 93 L 07/14/21 08:38 Weight - Most Recent: 106.849 kg I&O - Last 24 hours: Intake & Output 07/13/21 07/14/21 07/14/21 22:59 06:59 14:59 Intake Total 940 750 Output Total 1200 650 Balance -260 100 Lab Results - Last 24 hrs: Laboratory Results - last 24 hr 07/14/21 07/14/21 Range/Units 05:16 05:16 WBC 5.89 (4.0-11.0) K/uL RBC 3.92 L (4.30-5.90) M/uL Hgb 10.7 L (12.0-16.0) g/dL Hct 32.2 L (36.0-46.0) % MCV 82.1 (80.0-98.0) fL MCH 27.3 (27.0-32.0) pg MCHC 33.2 (31.0-37.0) g/dL RDW Std Deviation 42.1 (28.0-62.0) fl RDW Coeff of [place]ooja 14 (11.0-15.0) % Plt Count 152 (150-400) K/uL MPV 11.30 (7.40-12.00) fL Neut % (Auto) 56.5 (48.0-80.0) % Lymph % (Auto) 28.4 (16.0-40.0) % [place] % (Auto) 13.9 (0.0-15.0) % Eos % (Auto) 1.0 (0.0-7.0) % Baso % (Auto) 0.2 (0.0-1.5) % Neut # (Auto) 3.3 (1.4-5.7) K/uL Lymph # (Auto) 1.7 (0.6-2.4) K/uL [place] # (Auto) 0.8 (0.0-0.8) K/uL Eos # (Auto) 0.1 (0.0-0.7) K/uL Baso # (Auto) 0.0 (0.0-0.1) K/uL Nucleated RBC % 0.0 /100WBC Nucleated RBCs # 0 K/uL Sodium 137 (136-145) mmol/L Potassium 3.3 L (3.5-5.1) mmol/L Chloride 102 (98-107) mmol/L Carbon Dioxide 27.3 (21.0-32.0) mmol/L BUN 6 L (7.0-18.0) mg/dL Creatinine 0.9 (0.6-1.0) mg/dL Est Cr Clr Drug Dosing 78.15 mL/min Estimated GFR (MDRD) > 60.0 ml/min Glucose 92 (74-106) mg/dL Calcium 8.1 L (8.5-10.1) mg/dL Magnesium 2.0 (1.8-2.4) mg/dL KELLY Results - Last 24 hrs: Microbiology 07/11/21 16:00 Urine Culture - Preliminary Urine Enterococcus Species Staphylococcus Species Med Orders - Current: Current Medications Acetaminophen (Acetaminophen 325 Mg Tab) 650 mg PO Q4H PRN PRN Reason: Pain (Mild 1-3)/fever Last Admin: 07/12/21 09:09 Dose: 650 mg Documented by: Albuterol/Ipratropium (Albuterol/Ipratropium 4 Gm Inhalation [place]) 0 gm INH Q4HRRT PRN PRN Reason: Dyspnea Last Admin: 07/12/21 00:03 Dose: 2 puff Documented by: Benzonatate (Benzonatate 100 Mg Cap) 200 mg PO Q8H PRN PRN Reason: Cough Last Admin: 07/14/21 03:34 Dose: 200 mg Documented by: Enoxaparin Sodium (Enoxaparin 150 Mg/1 Ml Syringe) 120 mg SUBCUT Q12H [facility] Last Admin: 07/13/21 22:35 Dose: 120 mg Documented by: Guaifenesin (Guaifenesin 600 Mg Tab.Er) 600 mg PO BID [facility] Last Admin: 07/14/21 08:34 Dose: 600 mg Documented by: Guaifenesin/Codeine Phosphate (Codeine/Guaifenesin 10-100 Mg/5 Ml Syrup 5 Ml Cup) 5 ml PO Q4H PRN PRN Reason: Cough Last Admin: 07/13/21 22:34 Dose: 5 ml Documented by: Pantoprazole Sodium 40 mg/ (Sodium Chloride) 10 mls @ 300 mls/hr IV Q24H [facility] Last Admin: 07/13/21 13:44 Dose: 300 mls/hr Documented by: Ceftriaxone Sodium/Dextrose 1 (gm/ Premix) 50 mls @ 100 mls/hr IV Q24H [facility] Last Admin: 07/14/21 08:35 Dose: 100 mls/hr Documented by: Morphine Sulfate (Morphine 4 Mg/Ml Syringe) 3 mg IVPUSH Q2H PRN PRN Reason: Pain Last Admin: 07/12/21 17:50 Dose: 3 mg Documented by: Ondansetron HCl (Ondansetron 4 Mg/2 Ml Sdv) 4 mg IVPUSH Q4H PRN PRN Reason: Nausea Last Admin: 07/13/21 08:32 Dose: 4 mg Documented by: Oxycodone HCl (Oxycodone 5 Mg Tab) 5 mg PO Q4H PRN PRN Reason: Pain Last Admin: 07/13/21 22:34 Dose: 5 mg Documented by: Methylphenidate Hcl [Methylphenidate Hcl ] 10 Mg Tablet 1 each PO DAILY PRN PRN Reason: ADHD Promethazine HCl (Promethazine 25 Mg/Ml Sdv) 25 mg IM Q4H PRN PRN Reason: Nausea Last Admin: 07/13/21 16:37 Dose: 25 mg Documented by: Sodium Chloride (Sodium Chloride 0.9% 2.5 Ml Syringe) 2.5 ml FLUSH ASDIRECTED PRN PRN Reason: Keep Vein Open Discontinued Medications Enoxaparin Sodium (Enoxaparin 100 Mg/1 Ml Syringe) 115 mg SUBCUT ONETIME ONE Stop: 07/10/21 11:26 Last Admin: 07/10/21 11:33 Dose: Not Given Documented by: Enoxaparin Sodium (Enoxaparin 100 Mg/1 Ml Syringe) 100 mg SUBCUT ONETIME ONE Stop: 07/10/21 11:31 Last Admin: 07/10/21 13:10 Dose: 100 mg Documented by: Sodium Chloride (Normal Saline) 1,000 mls @ 999 mls/hr IV STAT ONE Stop: 07/10/21 11:13 Last Admin: 07/10/21 10:18 Dose: 999 mls/hr Documented by: Potassium Chloride/Sodium Chloride (Normal Saline With 40 Meq Kcl) 1,000 mls @ 125 mls/hr IV ONETIME ONE Stop: 07/10/21 23:13 Last Admin: 07/10/21 15:47 Dose: 125 mls/hr Documented by: Lorazepam (Lorazepam 2 Mg/Ml Sdv) 0.5 mg IVPUSH ONETIME ONE Stop: 07/10/21 10:14 Last Admin: 07/10/21 10:18 Dose: 0.5 mg Documented by: Morphine Sulfate (Morphine 4 Mg/Ml Syringe) 4 mg IVPUSH ONETIME ONE Stop: 07/10/21 12:45 Last Admin: 07/10/21 13:10 Dose: 4 mg Documented by: Ondansetron HCl (Ondansetron 4 Mg/2 Ml Sdv) 4 mg IVPUSH ONETIME ONE Stop: 07/10/21 10:14 Last Admin: 07/10/21 10:18 Dose: 4 mg Documented by: Ondansetron HCl (Ondansetron 4 Mg/2 Ml Sdv) 4 mg IVPUSH ONETIME ONE Stop: 07/10/21 12:45 Last Admin: 07/10/21 13:10 Dose: 4 mg Documented by: Potassium Chloride (Potassium Chloride 20 Meq Tab.Er) 40 meq PO ONETIME ONE Stop: 07/14/21 08:16 Last Admin: 07/14/21 08:34 Dose: 40 meq Documented by:
[2021-07-14] MEDS: Enoxaparin 150 MG/1 ML Syringe SUBCUT SCH (11:53)
--- NOTE | 2021-07-17 15:12 | ECHO ---
EXAM DATE: 07/10/21 PATIENT'S AGE: 50 The ECHO report has been scanned into [employer] and can be seen in this patient's EMR (Electronic Medical Record) under the REPORTS section. The report has also been scanned into PACS. BRIGHT
== END 2021-07-14 12:30 | disposition home or self-care (01) | DRG 197 ==
LOC: MW.ED 09:51 → MW.MS 11:26 → OBSVTOIN 16:09 → MW.MS 18:03
PROVIDERS: ADMIT Internal Medicine; ATTEND Internal Medicine
PROC: 8E0ZXY6 Isolation (ICD-10-PCS; principal; 2021-07-10)
DX: I82.A12 Acute embolism and thrombosis of left axillary vein (principal); U07.1 COVID-19; E87.6 Hypokalemia; R11.2 Nausea with vomiting, unspecified; F98.8 Other specified behavioral and emotional disorders with onset usually occurring in childhood and adolescence; N39.0 Urinary tract infection, site not specified; I82.290 Acute embolism and thrombosis of other thoracic veins; I82.B12 Acute embolism and thrombosis of left subclavian vein; I47.2 Ventricular tachycardia; Z66 Do not resuscitate; K21.9 Gastro-esophageal reflux disease without esophagitis; F41.9 Anxiety disorder, unspecified; E86.0 Dehydration; F32.9 Major depressive disorder, single episode, unspecified; F90.9 Attention-deficit hyperactivity disorder, unspecified type; Z90.49 Acquired absence of other specified parts of digestive tract; Z90.710 Acquired absence of both cervix and uterus
CPT/HCPCS: 36415; 71045; 71045-26; 80048; 80053; 81001; 83605; 83735; 84484; 85025; 85610; 85730; 87086; 87088; 87186; 93005; 93306; 93971-26-LT; 93971-LT; 96372; 96374; 96375; 96376; 97110-GP; 97161-GP; 99284; 99285-25; A9270-GY; C9113; J0696; J1650; J2060; J2270; J2405; J2550; J3480; J7030